=== PATIENT | male | born 1935 | race Caucasian/White ===

== ENCOUNTER 2019-06-19 20:36 | Emergency (ER) | payer MEDICARE ==
[~2019-06-19] VITALS: Ht 182.9 cm; Wt 73.0 kg
[2019-06-19] MEDS ORDERED: ASPIRIN 325 MG TABLET PO ONE (20:45)
--- NOTE | 2019-06-19 21:01 | PHYS DOC ---
Adult General Chief Complaint Chief Complaint: SHORTNESS OF BREATH HPI HPI Patient is a 83 year old male who was brought here urgently by EMS due to chest pressure and shortness of air while he was eating dinner. Patient is scheduled for some surgery in 5 days at [facility] so he was told not to take his aspirin. and his coumadin since Wednesday. Patient has history of CAD, CABG and COPD. He still smokes. He is not on oxygen at home. He denied any cough or fever. He said he was doing fine all day. EMS said when they got to him, he was in respiratory distress. He was pale, breathing heavily, his oxygen saturation was in the 80%. They put him on CPAP. He was given two duoneb treatment on route. Upon arrival to the ER, patient felt much better, no more chest pressure. He was still having shortness of air but not as bad. Review of Systems Review of Systems Constitutional: Denies fever or chills [] Eyes: Denies change in visual acuity, redness, or eye pain [] HENT: Denies nasal congestion or sore throat [] Respiratory: Denies cough , Positive for shortness of breath [] Cardiovascular: No additional information not addressed in HPI [] GI: Denies abdominal pain, nausea, vomiting, bloody stools or diarrhea [] : Denies dysuria or hematuria [] Musculoskeletal: Denies back pain or joint pain [] Integument: Denies rash or skin lesions [] Neurologic: Denies headache, focal weakness or sensory changes [] Endocrine: Denies polyuria or polydipsia [] All other systems were reviewed and found to be within normal limits, except as documented in this note. Current Medications Current Medications Current Medications Medications (Trade) Dose Ordered Sig/[facility] Start Time Stop Time Status Last Admin Dose Admin Aspirin (Lyndsey Aspirin) 325 mg 1X ONCE 06/19/19 20:45 06/19/19 20:51 DC 06/19/19 20:45 325 MG Allergies Allergies Allergies Coded Allergies Type Severity Reaction Last Updated Verified No Known Drug Allergies 06/19/19 No Physical Exam Physical Exam Constitutional: Well developed, well nourished, mild acute distress, non-toxic appearance. [] HENT: Normocephalic, atraumatic, bilateral external ears normal, oropharynx moist, no oral exudates, nose normal. [] Eyes: PERRLA, EOMI, conjunctiva normal, no discharge. [] Neck: Normal range of motion, no tenderness, supple, no stridor. [] Cardiovascular:Heart rate regular rhythm, no murmur [] Lungs & Thorax: Bilateral breath sounds clear to auscultation . Tachypnia with accessory muscle involved. Abdomen: Bowel sounds normal, soft, no tenderness, no masses, no pulsatile masses. [] Skin: Warm, dry, no erythema, no rash. [] Back: No tenderness, no CVA tenderness. [] Extremities: No tenderness, no cyanosis, no clubbing, ROM intact, no edema. [] Neurologic: Alert and oriented X 3, normal motor function, normal sensory function, no focal deficits noted. [] Psychologic: Affect normal, judgement normal, mood normal. [] Current Patient Data Lab Results Current Medications Medications (Trade) Dose Ordered Sig/Shiraz Route PRN Reason Start Time Stop Time Status Last Admin Dose Admin Aspirin (Lyndsey Aspirin) 325 mg 1X ONCE PO 06/19/19 20:45 06/19/19 20:51 DC 06/19/19 20:45 EKG EKG EKG WAS DONE AND READ BY THIS PHYSICIAN AT 0847, RATE OF 113 BPM, RBBB, ST SEGMENT ELEVATION IN II, III, AVF. Radiology/Procedures Radiology/Procedures CHEST XRAY WAS READ BY THIS PHYSICIAN BILATERAL SMALL PLEURAL EFFUSION. MILD PULMONARY EDEMA. NO INFILTATION, NO PNEUMOTHORAX[] Course & Med Decision Making Course & Med Decision Making Pertinent Labs and Imaging studies reviewed. (See chart for details) Patient's EKG is consistent with inferior PA, no old Ekg TO COMPARE. PATIENT WA NTED TO GO TO WHERE HIS HEART DOCTORS ARE. patient was put on BIPAP. He was doing much better. He denied any chest pain a t this time. Dr. Gipson, DIRECTOR OF CAMPUS RECREATION FIELD ADMINISTRATOR AT , was consulted on phone, agreed to accept patient. Dragon Disclaimer Dragon Disclaimer This electronic medical record was generated, in whole or in part, using a voice recognition dictation system. Departure Departure: Impression: Primary Impression: STEMI (ST elevation myocardial infarction) Disposition: 02 XFER SHT-TRM HOSP ([facility]) Condition: STABLE Referrals: KAYLEE HILARIO (PCP) JEFFREY MACHADO DO Jun 19, 2019 21:01
[2019-06-19 21:11] LABS: BASO # 0.1 x10^3/uL (0.0-0.2); BASO % 1 % (0-3); EOS # 0.1 x10^3/uL (0.0-0.7); EOS % 2 % (0-3); HEMATOCRIT 35.6 % (39.0-53.0); HEMOGLOBIN 11.1 g/dL (13.0-17.5); LYMPH # 1.4 x10^3/uL (1.0-4.8); LYMPH % 26 % (24-48); MEAN CORPUSCULAR HEMOGLOBIN 28 pg (25-35); MEAN CORPUSCULAR HGB CONC 31 g/dL (31-37); MEAN CORPUSCULAR VOLUME 89 fL (79-100); MONO # 0.5 x10^3/uL (0.0-1.1); MONO % 10 % (0-9); NEUT # 3.3 x10^3uL (1.8-7.7); NEUT % 60 % (31-73); PLATELET COUNT 319 x10^3/uL (140-400); RED BLOOD COUNT 3.99 x10^6/uL (4.30-5.70); RED CELL DISTRIBUTION WIDTH 25.1 % (11.5-14.5); WHITE BLOOD COUNT 5.5 x10^3/uL (4.0-11.0)
[2019-06-19 21:14] LABS: CALCIUM 8.7 mg/dL (8.5-10.1); CREATININE 1.3 mg/dL (0.7-1.3); GFR 52.6; POTASSIUM 4.7 mmol/L (3.5-5.1)
[2019-06-19] MEDS: NITROGLYCERIN SUBLINGUAL 0.4 MG BOTTLE OF 25. SL PRN ×2 (21:14→21:21)
[2019-06-19 21:21] VITALS: BP 138/83
[2019-06-19 21:27] LABS: ALBUMIN/GLOBULIN RATIO 0.7 (1.0-1.7); MAGNESIUM 2.2 mg/dL (1.8-2.4); TOTAL BILIRUBIN 0.3 mg/dL (0.2-1.0); TOTAL PROTEIN 7.6 g/dL (6.4-8.2)
[2019-06-19] MEDS ORDERED: HEPARIN for IV BOLUS 10,000 UNIT/10 ML VIAL. IV ONE (21:30)
[2019-06-19 21:40] LABS: BGAS PH 7.38 (7.35-7.46)
[2019-06-19 21:59] LABS: ANISOCYTOSIS MOD; OVALOCYTES OCC; PLT ESTIMATE ADEQUATE (ADEQUATE)
[2019-06-19 22:00] LABS: SCHISTOCYTES OCC
--- NOTE | 2019-06-19 22:49 | EKG ---
[address] [address] Test Date: 2019-06-19 Test Time: 20:46:35 Pat Name: FRANKO SEN Department: Room: Gender: M Knock Out Hand: : 1935 Requested By: JEFFREY MACHADO Order Number: [id number] Reading MD: Measurements Intervals [place] Rate: 113 P: -81 [place]: 124 QRS: -90 QRSD: 150 T: 82 QT: 352 QTc: 482 Interpretive Statements SUPRAVENTRICULAR RHYTHM ABNORMAL LEFT AXIS DEVIATION LOW LIMB LEAD VOLTAGE RIGHT BUNDLE BRANCH BLOCK RVH WITH REPOLARIZATION ABNORMALITY QRS(T) CONTOUR ABNORMALITY CONSISTENT WITH LATERAL INFARCT AGE UNDETERMINED CONSISTENT WITH INFERIOR INFARCT POSSIBLY RECENT ABNORMAL ECG RI6.01 No previous ECG available for comparison
--- NOTE | 2019-06-19 22:59 | RAD ---
Exam: Chest one view INDICATION: Short of air TECHNIQUE: Frontal view of the chest Comparisons: None FINDINGS: Sternotomy wires are noted. The cardiomediastinal silhouette and pulmonary vessels are within normal limits. Small bilateral pleural effusions. Strandy opacities at the lung bases bilaterally. IMPRESSION: Small bilateral pleural effusions with adjacent airspace disease, may represent atelectasis versus developing infectious process Electronically signed by: Darrel Franco MD (06/19/2019 10:55 PM) [id number]
== END 2019-06-19 21:29 | disposition short-term general hospital (02) ==
LOC: ER 20:36
DX: I21.3 ST elevation (STEMI) myocardial infarction of unspecified site (principal); I25.810 Atherosclerosis of coronary artery bypass graft(s) without angina pectoris; J44.9 Chronic obstructive pulmonary disease, unspecified
CPT/HCPCS: 36415; 36600; 71045; 80053; 82803; 83605; 83735; 83880; 84484; 85025; 85610; 85730; 87040; 93005; 94660; 96374; 99285; J1644

== ENCOUNTER 2019-07-07 20:00 | Inpatient (IN) | payer MEDICARE ==
[~2019-07-07] VITALS: Ht 177.8 cm; Wt 70.4 kg
[2019-07-07] MEDS ORDERED: IPRATRPIUM/ALBUTEROL 0.5/2.5MG 3 ML NEBU. ONE (20:10)
[2019-07-07] MEDS ORDERED: methylPREDNISolone SOD SUCC PF 125 MG/2 ML VIAL. IV ONE (20:30)
[2019-07-07] MEDS ORDERED: IPRATRPIUM/ALBUTEROL 0.5/2.5MG 3 ML NEBU. NEB ONE (20:30)
[2019-07-07 20:40] LABS: BASO # 0.1 x10^3/uL (0.0-0.2); BASO % 1 % (0-3); EOS # 0.2 x10^3/uL (0.0-0.7); EOS % 3 % (0-3); HEMATOCRIT 32.6 % (39.0-53.0); HEMOGLOBIN 10.3 g/dL (13.0-17.5); LYMPH # 1.6 x10^3/uL (1.0-4.8); LYMPH % 24 % (24-48); MEAN CORPUSCULAR HEMOGLOBIN 30 pg (25-35); MEAN CORPUSCULAR HGB CONC 32 g/dL (31-37); MEAN CORPUSCULAR VOLUME 95 fL (79-100); MONO # 0.5 x10^3/uL (0.0-1.1); MONO % 8 % (0-9); NEUT # 4.2 x10^3uL (1.8-7.7); NEUT % 64 % (31-73); PLATELET COUNT 261 x10^3/uL (140-400); RED BLOOD COUNT 3.44 x10^6/uL (4.30-5.70); RED CELL DISTRIBUTION WIDTH 24.1 % (11.5-14.5); WHITE BLOOD COUNT 6.6 x10^3/uL (4.0-11.0)
--- NOTE | 2019-07-07 20:48 | PHYS DOC ---
Past History Past Medical History: COPD, Heart Disease, Hypertension, Other Additional Past Medical Histor: Cardiac. Past Surgical History: Coronary Bypass Surgery Alcohol Use: None Adult General Chief Complaint Chief Complaint: SHORTNESS OF BREATH HPI HPI 83-year-old male past medical history of COPD on continuous 2 L nasal cannula presents with a chief complaint of shortness of breath. Patient states shortness of breath has been ongoing for 2 days progressively becoming worse. Patient has a cough without sputum production. Patients shortness of breath is worse with exertion. Patient denies any chest pain fevers or chills. Patient with recent VA (06/19/19) with stent placement. At the time of my exam patient was tachypneic and tachycardic with diffuse wheezing. Duoneb treatment was started prior to my exam. Review of Systems Review of Systems Constitutional: Denies fever or chills [] Eyes: Denies change in visual acuity, redness, or eye pain [] HENT: Denies nasal congestion or sore throat [] Respiratory: Positive cough-positive shortness of breath Cardiovascular: No additional information not addressed in HPI [no chest pain] GI: Denies abdominal pain, nausea, vomiting, bloody stools or diarrhea [] : Denies dysuria or hematuria [] Musculoskeletal: Denies back pain or joint pain [] Integument: Denies rash or skin lesions [] Neurologic: Denies headache, focal weakness or sensory changes [] Endocrine: Denies polyuria or polydipsia [] All other systems were reviewed and found to be within normal limits, except as documented in this note. Current Medications Current Medications Current Medications Medications (Trade) Dose Ordered Sig/Shiraz Start Time Stop Time Status Last Admin Dose Admin Albuterol/ Ipratropium (Duoneb) 3 ml 1X ONCE 07/07/19 20:30 07/07/19 20:33 DC 07/07/19 20:11 3 ML Methylprednisolone Sodium Succinate (SOLU-Medrol 125MG VIAL) 125 mg 1X ONCE 07/07/19 20:30 07/07/19 20:33 DC 07/07/19 20:37 125 MG Allergies Allergies Allergies Coded Allergies Type Severity Reaction Last Updated Verified No Known Drug Allergies 06/19/19 No Physical Exam Physical Exam Constitutional: Well developed, well nourished, no acute distress, non-toxic appearance. [] HENT: Normocephalic, atraumatic, bilateral external ears normal, oropharynx mois t, no oral exudates, nose normal. [] Eyes: PERRLA, EOMI, conjunctiva normal, no discharge. [] Neck: Normal range of motion, no tenderness, supple, no stridor. [] Cardiovascular:tachycardia Lungs & Thorax: wheezing Abdomen: Bowel sounds normal, soft, no tenderness, no masses, no pulsatile masses. [] Skin: Warm, dry, no erythema, no rash. [] Back: No tenderness, no CVA tenderness. [] Extremities: No tenderness, no cyanosis, no clubbing, ROM intact, no edema. [] Neurologic: Alert and oriented X 3, normal motor function, normal sensory function, no focal deficits noted. [] Psychologic: Affect normal, judgement normal, mood normal. [] Current Patient Data Lab Results Laboratory Tests Test 07/07/19 20:20 White Blood Count 6.6 x10^3/uL (4.0-11.0) Red Blood Count 3.44 x10^6/uL (4.30-5.70) L Hemoglobin 10.3 g/dL (13.0-17.5) L Hematocrit 32.6 % (39.0-53.0) L Mean Corpuscular Volume 95 fL (79-100) Mean Corpuscular Hemoglobin 30 pg (25-35) Mean Corpuscular Hemoglobin Concent 32 g/dL (31-37) Red Cell Distribution Width 24.1 % (11.5-14.5) H Platelet Count 261 x10^3/uL (140-400) Neutrophils (%) (Auto) 64 % (31-73) Lymphocytes (%) (Auto) 24 % (24-48) Monocytes (%) (Auto) 8 % (0-9) Eosinophils (%) (Auto) 3 % (0-3) Basophils (%) (Auto) 1 % (0-3) Neutrophils # (Auto) 4.2 x10^3uL (1.8-7.7) Lymphocytes # (Auto) 1.6 x10^3/uL (1.0-4.8) Monocytes # (Auto) 0.5 x10^3/uL (0.0-1.1) Eosinophils # (Auto) 0.2 x10^3/uL (0.0-0.7) Basophils # (Auto) 0.1 x10^3/uL (0.0-0.2) Platelet Estimate Pending EKG EKG 2014 Sinus tachycardia right bundle-branch block no ST elevation no ST depression no acute VA[] Radiology/Procedures Radiology/Procedures [] Impressions: 1. Bilateral airspace disease, mildly increased from prior study, likely interstitial edema. 2. Small pleural effusions. Course & Med Decision Making Course & Med Decision Making Pertinent Labs and Imaging studies reviewed. (See chart for details) []Patient was evaluated for chief complaint. Workup consisted of laboratory analysis radiologic imaging and EKG. Results reviewed and discussed with patient. Patient noted to have a troponin of 0.110-- Chest Xray -- interstitial edema ABG - pH 7.4 and CO2 40 Patient treated with Levaquin, Lasix, Solumedrol, and Duoneb. Re-evaluation @ 2100hrs-- Patient 100% on 2L [place] Disclaimer Dragon Disclaimer This electronic medical record was generated, in whole or in part, using a voice recognition dictation system. Departure Departure: Impression: Primary Impression: COPD exacerbation Disposition: ADMITTED INPATIENT Condition: STABLE Referrals: KAYLEE HILARIO (PCP) FRANKO OCONNELL DO Jul 07, 2019 20:48
[2019-07-07 20:50] LABS: CREATININE 1.3 mg/dL (0.7-1.3); GFR 52.6; POTASSIUM 4.5 mmol/L (3.5-5.1)
[2019-07-07 20:56] LABS: ALBUMIN 3.2 g/dL (3.4-5.0); ALBUMIN/GLOBULIN RATIO 0.8 (1.0-1.7); TOTAL BILIRUBIN 0.2 mg/dL (0.2-1.0); TOTAL PROTEIN 7.4 g/dL (6.4-8.2)
--- NOTE | 2019-07-07 21:20 | RAD ---
Single view chest dated 07/07/2019. Comparison made 8 06/19/2019. Clinical data indication: Cough and shortness of breath. FINDINGS: Single upright portable exam performed. Heart and mediastinal contours are stable. Patient is status post median sternotomy. Perihilar and bibasilar airspace disease with blunting of the costophrenic sulci. No pneumothorax. Prominent interstitial markings bilaterally, somewhat increased from prior study. IMPRESSION: 1. Bilateral airspace disease, mildly increased from prior study, likely interstitial edema. 2. Small pleural effusions. Electronically signed by: Chin Ham MD (07/07/2019 9:17 PM) [id number]
[2019-07-07 21:30] LABS: ANISOCYTOSIS MOD; HYPOCHROMIA SLIGHT; PLT ESTIMATE ADEQUATE (ADEQUATE); POLYCHROMASIA SLIGHT
[2019-07-07 21:31] LABS: HELMET CELLS OCC; OVALOCYTES OCC
[2019-07-07 22:08] LABS: BGAS PH 7.41 (7.35-7.46)
[2019-07-08] MEDS ORDERED: ALBUTEROL SULFATE 2.5 MG/3 ML NEBU. NEB PRN
--- NOTE | 2019-07-08 00:48 | NUR ---
The patient, FRANKO SEN, 83 y/o, M admitted by REGGIE AMANDA MD, was given written information regarding hospital policies, unit procedures and contact persons. Valuables were checked and logged. Call light in place. Will continue to monitor.
--- NOTE | 2019-07-08 00:53 | EKG ---
[address] [address] Test Date: 2019-07-07 Test Time: 20:15:32 Pat Name: FRANKO SEN Department: Room: Gender: M Chief Compliance Officer: : 1935 Requested By: FRANKO OCONNELL Order Number: [id number] Reading MD: Measurements Intervals [place] Rate: 102 P: -75 [place]: 134 QRS: -99 QRSD: 154 T: 56 QT: 378 QTc: 497 Interpretive Statements SINUS TACHYCARDIA ABNORMAL RIGHT SUPERIOR AXIS DEVIATION LOW LIMB LEAD VOLTAGE RIGHT BUNDLE BRANCH BLOCK RVH WITH REPOLARIZATION ABNORMALITY QRS(T) CONTOUR ABNORMALITY CONSISTENT WITH ANTEROLATERAL INFARCT PROBABLY OLD CONSISTENT WITH INFERIOR INFARCT PROBABLY OLD ABNORMAL ECG RI6.01 No previous ECG available for comparison
[2019-07-08 01:09] VITALS: BP 157/93
[2019-07-08] MEDS ORDERED: ASPI81TA50 PO (05:21)
[2019-07-08] MEDS ORDERED: CARB400T PO (05:24)
[2019-07-08] MEDS ORDERED: GABA-586 PO (05:24)
[2019-07-08] MEDS ORDERED: METO100T7 PO (05:24)
[2019-07-08] MEDS ORDERED: CRESTOR20 MG PO ×2 (05:26→06:40)
[2019-07-08] MEDS ORDERED: WARF7.5T48 PO (05:37)
[2019-07-08] MEDS ORDERED: WARF-78 PO (05:37)
[2019-07-08] MEDS ORDERED: IPRATRPIUM/ALBUTEROL 0.5/2.5MG 3 ML NEBU. ONE (05:40)
[2019-07-08] MEDS: IPRATRPIUM/ALBUTEROL 0.5/2.5MG 3 ML NEBU. NEB SCH ×4 (05:42→20:15)
[2019-07-08 05:45] VITALS: BP 146/91
--- NOTE | 2019-07-08 05:45 | NUR ---
Routine cardiac consult called at this time.
[2019-07-08] MEDS: methylPREDNISolone SOD SUCC PF 40 MG/ML VIAL. IV SCH ×3 (06:09→20:54)
[2019-07-08] MEDS ORDERED: FURO-68 PO (06:40)
[2019-07-08] MEDS ORDERED: ALBU1.25 NEB (06:40)
[2019-07-08] MEDS ORDERED: LISI-338 PO (06:40)
[2019-07-08] MEDS ORDERED: METO25TA4 PO (06:40)
[2019-07-08] MEDS ORDERED: CLOP75TA57 PO (07:07)
[2019-07-08 11:15] VITALS: BP 145/88
[2019-07-08] MEDS ORDERED: FUROSEMIDE 40 MG TABLET PO PRN (11:45)
[2019-07-08] MEDS ORDERED: NON FORMULARY ITEM (Albuterol Sulfate (Albuterol Sulfate Neb Soln) 1.25 MG) NEB SCH (11:45)
[2019-07-08] MEDS ORDERED: FUROSEMIDE 40 MG/4 ML VIAL IVP ONE (12:15)
[2019-07-08] MEDS: LISINOPRIL 5 MG TABLET. PO SCH (12:34)
[2019-07-08] MEDS: ASPIRIN ENTERIC COATED 81 MG TABLET.DR. PO SCH (12:35)
[2019-07-08] MEDS: CLOPIDOGREL BISULFATE 75 MG TABLET PO SCH (12:35)
--- NOTE | 2019-07-08 12:48 | HP ---
ADMIT DATE: HISTORY OF PRESENT ILLNESS: The patient is an 83-year-old male patient who presented to the Emergency Room of [facility] complaining of shortness of breath. He stated that shortness has been ongoing for the last 2 days, progressively getting worse and has also cough, which is mostly dry. His shortness of breath is worse with exertion. He denied any chest pain, fever, chills or rigors. He apparently was seen recently in the Emergency Room of this hospital, specifically on 06/19/[address] segment elevation myocardial infarction and was transferred to [facility] where he underwent PCI with stent deployment x 2. PAST MEDICAL HISTORY: Significant for hypertension; hyperlipidemia; coronary artery disease, status post coronary artery bypass graft x 4 about 10 years ago and 2 weeks ago underwent PCI with stent deployment. He is known to have chronic obstructive pulmonary disease, on oxygen that started at the end of April of this year. He is known to have osteoarthritis, benign prostatic hypertrophy as well as trigeminal neuralgia for which he was treated with radiofrequency ablation x 2. PAST SURGICAL HISTORY: Significant for coronary artery bypass graft surgery x 4 ten years ago. He has PCI with stent deployment about more than 2 weeks ago, has abdominal aortic aneurysm repair, radiofrequency ablation of his right trigeminal neuralgia, esophagogastroduodenoscopy. ALLERGIES: He has no known drug allergies. MEDICATIONS: He is currently on following medications: He is on albuterol sulfate 1.25 mg in 3 mL by nebulizer every 4 hours. He is on Coumadin 5 mg every Wednesday, Coumadin 7.5 mg daily, Plavix 75 mg once a day, Crestor 20 mg at bedtime, metoprolol tartrate 25 mg twice a day, lisinopril 5 mg daily. He is on aspirin 81 mg once a day, carbamazepine extended release 400 mg twice a day, carbamazepine 300 mg twice a day. He is on furosemide 40 mg daily. FAMILY HISTORY: He has one sister older at the age of 86 and seemingly healthy. His father at the age of 79 because of abdominal aortic aneurysm rupture. His mother at the age of 94 because of old age according to him. SOCIAL HISTORY: He is for the second time. He has 3 sons and 1 daughter who at the age of 47. He quit smoking only 4 days ago. He does not drink alcohol or use any recreational drugs. 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 REVIEW OF SYSTEMS: The patient denied any blurring of vision, cataract, glaucoma or macular degeneration. Denied any earache, tinnitus or sensorineural deafness. Denied any nosebleeds, stuffy nose or postnasal drip. Denied any sore throat, sore tongue, toothache, hoarseness of voice or difficulty swallowing. He denied any nausea, vomiting, diarrhea or constipation. Denied any hematemesis, melena, or hematochezia. Denied any dysuria, frequency or hematuria. Denied any chest pain. Did complain of shortness of breath, more worse on exertion. He has cough, which is mostly dry. He denied any orthopnea or paroxysmal nocturnal dyspnea. Denied any dizziness, lightheadedness, or vertigo. Denied any chills, rigors or fever. PHYSICAL EXAMINATION: GENERAL: On arrival to the Emergency Room, he looked pale. No jaundice, cyanosis or thyromegaly. No jugular venous distention or limb edema. VITAL SIGNS: His heart rate was 110, blood pressure was 142/84, temperature was 97.7, respiratory rate was 28 and oxygen saturation was 95%. HEAD, EYES, EARS, NOSE AND THROAT: Showed normocephalic, atraumatic. NECK: Supple. HEART: Showed normal first and second heart sounds. No gallop, rub or murmur. CHEST: Clear to auscultation. No crepitation or rhonchi. ABDOMEN: Distended, soft, nontender. NEUROLOGIC: He was awake, alert, responding appropriately. All cranial nerves intact. EXTREMITIES: He moves extremities without difficulty, ambulates without assistance or assistive devices. LABORATORY DATA: Showed a white cell count of 6600, hemoglobin 10, hematocrit 33, MCV 95, and platelet count 261,000 with normal manual differential. His chemistry showed a serum sodium 134, potassium 4.5, chloride 99, bicarbonate 31, anion gap of 4, BUN 15, creatinine 1.3, estimated GFR was 52 mL per minute. His glucose 153, calcium was 9. AST and ALT were normal. Alkaline phosphatase slightly elevated. Total protein was 7.4, albumin was 3.2. His blood gases showed a pH of 7.41, pCO2 of 41, pO2 of 77, bicarbonate was 26 and oxygen saturation was 95% on FiO2 of 28%. His prothrombin time and INR is 18.7 and 1.8. His aPTT was 36. His chest x-ray showed that the patient's heart and mediastinal contours are stable. The patient is status post median sternotomy, perihilar and bibasilar airspace disease with blunting of the costophrenic sulci. No pneumothorax. Prominent interstitial markings bilaterally, somewhat increased from prior study with the impression that the patient's bilateral airspace disease might be increased from prior study, likely interstitial edema, a small bilateral pleural effusion. ASSESSMENT AND PLAN: Basically, the patient was admitted with chronic obstructive pulmonary disease exacerbation, started him on IV antibiotic, steroids as well as bronchodilator. We will continue with all his medication and we will monitor him closely and decide on further management accordingly. REGGIE AMANDA MD DR: PAUL/dimas JOB#: [id number] / [id number]
--- NOTE | 2019-07-08 15:12 | PN ---
DATE: 07/08/2019 SUBJECTIVE: The patient is resting, slightly propped up in bed, in no apparent respiratory distress. He is awake, alert. Again, he denied any chest pain. Continued to have some shortness of breath, cough that is mostly dry. Denied any hemoptysis. PHYSICAL EXAMIANTION: GENERAL: When I saw him this morning, he looked well and was clearly in no apparent respiratory distress. He was pale. No jaundice, cyanosis or thyromegaly. No jugular venous distention. No limb edema. VITAL SIGNS: His heart rate was 91, blood pressure was 146/91, temperature was 97.9, respiratory rate was 22 and oxygen saturation was 96% on 2.5 liters of oxygen. HEAD, EYES, EARS, NOSE AND THROAT: Showed normocephalic, atraumatic. NECK: Supple. CARDIAC: Normal first and second heart sounds. No gallop or murmur. CHEST: Shows central trachea, equally reduced expansion, reduced air entry, vesicular sounds with bilateral scattered rhonchi. I could not appreciate any crepitation. ABDOMEN: Scaphoid, soft, nontender. NEUROLOGIC: He is awake, alert, responding appropriately. All cranial nerves are intact. He moves extremities without difficulty. LABORATORY DATA: His lab work this morning showed that he had actually 3 sets of cardiac enzymes. First troponin was 0.117, second was 0.090, third one was 0.079. His BNP was high at 7672. ASSESSMENT AND PLAN: My plan is to order IV Lasix 40 mg once today and we can continue with his oral diuretics tomorrow. I have already consulted the instrument panel assembler. REGGIE AMANDA MD DR: PAUL/dimas JOB#: [id number] / [id number]
[2019-07-08 15:32] VITALS: BP 129/76
[2019-07-08 19:30] VITALS: BP 106/66
[2019-07-08] MEDS: ATORVASTATIN CALCIUM 20 MG TABLET PO SCH (20:53)
[2019-07-08] MEDS: GABAPENTIN 300 MG CAPSULE. PO SCH (20:54)
[2019-07-08] MEDS: METOPROLOL TART IMMED RELEASE 25 MG TABLET PO SCH (20:54)
[2019-07-08] MEDS: LACTOBACILLUS RHAMNOSUS GG 1 CAPSULE. PO SCH (20:54)
[2019-07-09 00:02] VITALS: BP 111/71
[2019-07-09] MEDS: IPRATRPIUM/ALBUTEROL 0.5/2.5MG 3 ML NEBU. NEB SCH ×4 (04:56→19:58)
[2019-07-09] MEDS: methylPREDNISolone SOD SUCC PF 40 MG/ML VIAL. IV SCH ×3 (05:37→21:10)
[2019-07-09 06:13] VITALS: BP 118/72
[2019-07-09 07:26] LABS: CALCIUM 8.4 mg/dL (8.5-10.1); CREATININE 1.2 mg/dL (0.7-1.3); GFR 57.7; POTASSIUM 4.4 mmol/L (3.5-5.1)
[2019-07-09] MEDS ORDERED: VANCOMYCIN 1.75 GM in IV NORMAL SALINE 500ML 500 ML IV ONE (08:00)
[2019-07-09] MEDS: VANCOMYCIN PER PHARMACY MC PRN ×2 (08:22→08:24)
--- NOTE | 2019-07-09 08:22 | NUR ---
Pharmacy Vancomycin Dosing Note S:Consulted to monitor and dose vancomycin started 07/09/19. O:FRANKO SEN is a 83 year old M with Pneumonia, . Height: 5 feet, 10 inches Weight: 70.3 kg [employer] [employer] Body Weight: 73.00 Adjusted Body Weight: 71.92 Dosing Weight: Actual Other Antibiotics: LEVAQUIN LABS: Last BUN: Last Creatinine: 1.2 Creatinine Clearance: 45.6 Last WBC: 6.6 Last Procalcitonin: Tmax (past 24 hours): Microbiology: I/O: Drug Levels: Last level: on at Last dose given at Vancomycin Dosing: Loading Dose: 1750 mg x1 Dosing Weight: Actual Target Trough: 15-20 A: Based on: physician request for dosing, unable to take Zyvox due to drug interaction with carbamazapine P: 1. Begin Vancomycin 1750mg loading dose, then 1000 mg IV q24h 2. Follow up Trough level on 07/11/19 at 0830 3. Pharmacy will continue to monitor, follow and adjust therapy as needed. KARINA BROWN, 07/09/19 0822
[2019-07-09] MEDS: LACTOBACILLUS RHAMNOSUS GG 1 CAPSULE. PO SCH ×2 (08:53→21:10)
[2019-07-09] MEDS: METOPROLOL TART IMMED RELEASE 25 MG TABLET PO SCH ×2 (08:53→21:10)
[2019-07-09] MEDS: CLOPIDOGREL BISULFATE 75 MG TABLET PO SCH (08:53)
[2019-07-09] MEDS: ASPIRIN ENTERIC COATED 81 MG TABLET.DR. PO SCH (08:53)
[2019-07-09] MEDS: LISINOPRIL 5 MG TABLET. PO SCH (08:54)
[2019-07-09] MEDS: GABAPENTIN 300 MG CAPSULE. PO SCH ×2 (08:54→21:10)
[2019-07-09] MEDS ORDERED: FUROSEMIDE 40 MG TABLET PO SCH (09:00)
--- NOTE | 2019-07-09 09:35 | CONS ---
DATE OF CONSULTATION: 07/09/2019 REASON FOR CONSULTATION: Heart failure. HISTORY OF PRESENT ILLNESS: The patient is an 83-year-old man who was admitted to the hospital in the setting of dyspnea. He was previously admitted in early June and was transferred to [facility] where he underwent complex PCI of his tunica-biloxi LAD and radial graft to his RCA. He denied any chest pain after discharge from [facility] and I reviewed the records. But unfortunately over the last few days, he has had worsening dyspnea. He was admitted to the hospital here at [place] over the last 24-48 hours, has been diuresed and feels much better and back to baseline. Unfortunately, his blood cultures drawn in the ER were positive for 2 hours two sets for gram-positive cocci in clusters. He currently denies any other acute issues. Denies any fevers or chills at home. Denies any weight gain. He has not changed his diet in any manner. He thought that Lasix was to be used as needed, but unfortunately had some insidious increase in fluid, which prompted the admission. PAST MEDICAL HISTORY: 1. Coronary artery disease, status post PCI to the tunica-biloxi LAD due to an atretic CABRLA and PCI to the proximal left circumflex with overlapping Resolute [place] stents. The patient's radial graft to the RCA was not treated due to lack of any viability in the inferior portion of the RCA. 2. Hypertension. 3. Dyslipidemia. 4. Peripheral vascular disease, status post aortoiliac stenting for aneurysm in 2006. 5. Tobacco use. 6. Severe chronic obstructive pulmonary disease, on home O2 at 2 liters. 7. Prior history of bypass. SOCIAL HISTORY: No alcohol or illicit drug use. FAMILY HISTORY: Noncontributory. REVIEW OF SYSTEMS: Negative for 10 out of 14 systems reviewed, unless otherwise mentioned above in HPI. CURRENT CARDIOVASCULAR MEDICATIONS: 1. Warfarin. 2. Lasix 40 mg daily. 3. Atorvastatin 80 mg daily. 4. Metoprolol 25 mg p.o. b.i.d. 5. Lisinopril 5 mg daily. 6. Plavix 75 mg daily. 7. Aspirin 81 mg daily. 8. He is also on some Solu-Medrol. PHYSICAL EXAMINATION: VITAL SIGNS: Afebrile, 89, 21, 132/77, 97% on 2 liters. GENERAL: He is alert and oriented, in no acute distress. HEAD AND NECK: Unremarkable. CARDIAC: Deferred. PULMONARY: Deferred. EXTREMITIES: No significant lower extremity edema. DIAGNOSTIC STUDIES: Reviewed and INR is 1.9 with a normal creatinine. BNP is elevated at 7600. Cardiac enzymes are minimally elevated likely secondary to his acute systolic heart failure. Echocardiogram done at [facility] revealed ejection fraction of 40%. Chest x-ray here reveals mild pulmonary edema. IMPRESSION: 1. Acute on chronic systolic and diastolic heart failure. 2. Known coronary artery disease, status post recent PCI. 3. Chronic obstructive pulmonary disease. RECOMMENDATIONS: Agree with current cardiovascular medication regimen. Continue with treatment of his COPD exacerbation and positive blood cultures. No further cardiac testing necessary at this time. Thank you for this consultation. JOSE RICHEY MD DR: TAMMY/dimas JOB#: [id number] / [id number]
--- NOTE | 2019-07-09 12:35 | PN ---
DATE: 07/09/2019 SUBJECTIVE: The patient is resting, slightly propped up in bed, in no apparent distress. He actually continued to have cough with clear sputum. Has had no fever, chills or rigors. No chest pain. He apparently is feeling much better. We will continue with bronchodilator, steroids, all his medication. He apparently has 3 sets of cardiac enzymes that ruled out acute myocardial infarction. He was seen by the Cardiology team and he did not recommend any further cardiac testing. However, his blood culture has shown tiny gram-positive cocci in clusters in 2 out of 2 bottles. We did start him on vancomycin. We will continue current plan of management. PLAN: Continue with his Coumadin and I will repeat all his labs tomorrow. Once we have the culture and sensitivity, we will switch him to oral medication, he can be discharged home. REGGIE AMANDA MD DR: PAUL/dimas JOB#: [id number] / [id number]
[2019-07-09] MEDS ORDERED: WARFARIN 7.5 MG TABLET. PO SCH (16:00)
[2019-07-09 16:54] VITALS: BP 132/72
[2019-07-09 20:00] VITALS: BP 128/67
[2019-07-09] MEDS: ATORVASTATIN CALCIUM 20 MG TABLET PO SCH (21:10)
[2019-07-09 23:19] VITALS: BP 119/71
[2019-07-10] MEDS: IPRATRPIUM/ALBUTEROL 0.5/2.5MG 3 ML NEBU. NEB SCH ×2 (05:02→09:09)
[2019-07-10] MEDS: methylPREDNISolone SOD SUCC PF 40 MG/ML VIAL. IV SCH (06:00)
[2019-07-10 06:10] VITALS: BP 138/78
[2019-07-10 06:36] LABS: HEMATOCRIT 29.8 % (39.0-53.0); HEMOGLOBIN 9.6 g/dL (13.0-17.5); RED BLOOD COUNT 3.16 x10^6/uL (4.30-5.70); RED CELL DISTRIBUTION WIDTH 24.4 % (11.5-14.5); WHITE BLOOD COUNT 5.5 x10^3/uL (4.0-11.0)
[2019-07-10 06:52] LABS: ALBUMIN 2.9 g/dL (3.4-5.0); ALBUMIN/GLOBULIN RATIO 0.8 (1.0-1.7); CALCIUM 8.9 mg/dL (8.5-10.1); CREATININE 1.2 mg/dL (0.7-1.3); GFR 57.7; POTASSIUM 4.3 mmol/L (3.5-5.1); TOTAL BILIRUBIN 0.2 mg/dL (0.2-1.0); TOTAL PROTEIN 6.7 g/dL (6.4-8.2)
[2019-07-10] MEDS: ASPIRIN ENTERIC COATED 81 MG TABLET.DR. PO SCH (08:55)
[2019-07-10] MEDS: METOPROLOL TART IMMED RELEASE 25 MG TABLET PO SCH (08:55)
[2019-07-10] MEDS: LACTOBACILLUS RHAMNOSUS GG 1 CAPSULE. PO SCH (08:55)
[2019-07-10] MEDS: CLOPIDOGREL BISULFATE 75 MG TABLET PO SCH (08:55)
[2019-07-10] MEDS: LISINOPRIL 5 MG TABLET. PO SCH (08:56)
[2019-07-10] MEDS: GABAPENTIN 300 MG CAPSULE. PO SCH (09:00)
[2019-07-10] MEDS ORDERED: VANCOMYCIN 1 GM in IV NORMAL SALINE 250ML 250 ML IV SCH (09:00)
[2019-07-10 10:30] VITALS: BP 104/58
[2019-07-10] MEDS ORDERED: LEVO500T59 PO (11:57)
--- NOTE | 2019-07-10 12:09 | DS ---
DATE OF DISCHARGE: HOSPITAL COURSE: The patient is an 83-year-old male patient who was admitted with increasing shortness of breath and was basically diagnosed with chronic obstructive pulmonary disease exacerbation, questionable acute bronchitis. He has also acute on chronic diastolic congestive heart failure. He did actually very well. Unfortunately, his blood culture has grown tiny gram-positive cocci in clusters in 2/2 bottles and I spoke with the microbiology lab in [facility] who apparently sent the cultures yesterday to [place], [place]; however, today when I spoke to the lab in the [place], [place], they said they have not received it yet and probably still in swaying according to pathology lab technician at [facility]. The result will probably become available either on Wednesday or and as the patient is doing well, he is afebrile, his white cell count is normal, a decision was made to discharge him home to continue with IV antibiotic as an outpatient. He will be on vancomycin 1 gram IV daily and once we have the actual result of blood culture, we will obviously either continue with that or change to something orally depends on the identification and sensitivity. PHYSICAL EXAMINATION: GENERAL: When I saw him this afternoon, he was resting slightly propped up in bed, in no apparent respiratory distress. He was slightly pale, but no jaundice, cyanosis or thyromegaly. No jugular venous distention. No lower limb edema. VITAL SIGNS: His heart rate was 70, blood pressure was 104/58, temperature was 97.4, respiratory rate was 20, and oxygen saturation was 99% on 2 liters of oxygen. HEAD, EYES, EARS, NOSE AND THROAT: Showed normocephalic, atraumatic. NECK: Supple. HEART: Showed normal first and second heart sounds. No gallop or murmur. CHEST: Clear to auscultation. No crepitation or rhonchi. ABDOMEN: Distended, soft, nontender. No guarding or rigidity. No organomegaly. All hernial orifices intact. Bowel sounds normal. NEUROLOGIC: He was awake, alert, responding appropriately. All cranial nerves are intact. He moves extremities without difficulty. He ambulates without assistance or assistive devices. His intake and output are incompletely recorded. LABORATORY DATA: Showed a white cell count 5500, hemoglobin 9.6, hematocrit 29.8, MCV 94 and a platelet count of 194,000. His serum sodium was 135, potassium 4.3, chloride 100, bicarbonate 28, anion gap of 7, BUN 23, creatinine 1.2, estimated GFR was 58 mL per minute. His glucose was 98, calcium was 8.9. Total bilirubin, AST, ALT, alkaline phosphatase were normal. Total protein was 6.7, albumin was 2.9. His prothrombin time was 19.9, INR 1.9. His blood culture showed growth of tiny gram-positive cocci in clusters in 2/2 bottles, one set was drawn. DISCHARGE MEDICATIONS: He will be discharged home to continue on vancomycin 1 gram IV daily and continue on Coumadin 5 mg Wednesday, Wednesday, Wednesday and Coumadin 7.5 mg on Wednesday, Wednesday, Wednesday. Continue lactobacillus rhamnosus 1 capsule twice a day, atorvastatin 80 mg at bedtime, carbamazepine 400 mg twice a day, metoprolol tartrate 25 mg twice a day, gabapentin 300 mg twice a day, levofloxacin 500 mg IV daily, lisinopril 5 mg once a day, Plavix 75 mg once a day, aspirin 81 mg once a day, albuterol sulfate, ipratropium bromide in 3 mL by nebulizer 4 times a day. He will be in a tapering course of steroids in the form of prednisone 40 mg once a day for 3 days, 30 mg once a day for 3 days, 20 mg once a day for 3 days and 10 mg once a day for 3 days. FINAL DISCHARGE DIAGNOSES: 1. Acute bronchitis. 2. Chronic obstructive pulmonary disease exacerbation. 3. Gram-positive bacteremia with growth of tiny gram-positive cocci. The identification and sensitivity is still pending at the time of this dictation. OTHER MEDICAL PROBLEMS: Include: A. Coronary artery disease, status post PCI with stent deployment to left anterior descending and proximal left circumflex. B. Hypertension. C. Hyperlipidemia. D. Peripheral vascular disease, status post aortoiliac stenting for aneurysm in 2006. E. Tobacco use disorder. F. Severe chronic obstructive pulmonary disease that is oxygen dependent. REGGIE AMANDA MD DR: PAUL/dimas JOB#: [id number] / [id number]
--- NOTE | 2019-07-10 13:28 | NUR ---
Pt discharged home with spouse. Pt left unit via wheelchair. VSS. NAD. Denies pain. PIV left in place for OP infusion beginning tomorrow. Discharge instructions and follow up information discussed with patient. Questions answered. All belongings accounted for. No falls or injury reported.
[2019-07-10] MEDS ORDERED: WARFARIN 5 MG TABLET. PO SCH (16:00)
== END 2019-07-10 13:30 | disposition hospice, home (50) | DRG 190 ==
LOC: ER 20:00 → 1 SOUTH 22:11 → OBSVTOIN 07-08 00:48
PROVIDERS: ADMIT Internal Medicine; ATTEND Internal Medicine
DX: J44.0 Chronic obstructive pulmonary disease with (acute) lower respiratory infection (principal); I50.43 Acute on chronic combined systolic (congestive) and diastolic (congestive) heart failure; R78.81 Bacteremia; I11.0 Hypertensive heart disease with heart failure; J44.1 Chronic obstructive pulmonary disease with (acute) exacerbation; J20.9 Acute bronchitis, unspecified; I25.10 Atherosclerotic heart disease of native coronary artery without angina pectoris; M19.90 Unspecified osteoarthritis, unspecified site; N40.0 Benign prostatic hyperplasia without lower urinary tract symptoms; E78.5 Hyperlipidemia, unspecified; I73.9 Peripheral vascular disease, unspecified; B96.89 Other specified bacterial agents as the cause of diseases classified elsewhere; Z99.81 Dependence on supplemental oxygen; Z95.5 Presence of coronary angioplasty implant and graft; Z95.1 Presence of aortocoronary bypass graft; Z86.79 Personal history of other diseases of the circulatory system; Z72.0 Tobacco use; I25.2 Old myocardial infarction
CPT/HCPCS: 36415; 71045; 80048; 80053; 82803; 83605; 83880; 84484; 85025; 85027; 85610; 85730; 87040; 87205; 93005; 94640; G0378; G0379; J1940; J1956; J2920; J2930; J3370; J7040; J7050

== ENCOUNTER 2019-08-24 20:08 | Emergency (ER) | payer MEDICARE ==
[~2019-08-24] VITALS: Ht 177.8 cm; Wt 70.4 kg
[~2019-08-24 20:08] MED LIST: ALBU1.25 NEB; ASPI81TA50 PO; CARB400T PO; CLOP75TA57 PO; CRESTOR20 MG PO; FURO-68 PO; GABA-586 PO; LEVO500T59 PO; LISI-338 PO; METO100T7 PO; METO25TA4 PO; WARF-78 PO; WARF7.5T48 PO
--- NOTE | 2019-08-24 20:36 | PHYS DOC ---
Past History Past Medical History: A-Fib, Anemia, Anxiety, Arthritis, Arrhythmia, Bronchitis, CAD, COPD, Heart Disease, Hypertension, IA, Other Additional Past Medical Histor: Cardiac. Past Surgical History: Angioplasty, Coronary Bypass Surgery, Other Additional Past Surgical Histo: 2 cardiac stents Smoking: Cigarettes Alcohol Use: None General Adult EDM: Chief Complaint: SHORTNESS OF BREATH HPI: HPI: ".. 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 Patient in severe respiratory distress upon arrival to the emergency department. In route paramedics had given 125 Solu-Medrol and DuoNeb treatment. Patient currently requiring face mask with 100% oxygen to maintain saturations above 90. Patient in a tripod position with intercostal retractions. Patient recently seen in the emergency department on 07/07/19 a COPD exacerbation. Patient p atient prior to that had been seen for acute marked cardial infarction when he was transferred to [facility] where he underwent PCI with stent deployment x2. Patient is normally O2 to dependent at 2 L nasal cannula. Patient has history of diastolic dysfunction and CHF. Patient however has not been taking any Lasix. Patient reports his weights gone from 150 #, pt states his wt. 163 # today. Patient denies any recent travel outside the [place] area. Patient denies any specific recent ill contacts. Patient denies any fevers. Patient does have a significant medical history of hypertension, hyperlipidemia, coronary artery disease status post coronary artery bypass in 2009 and since that time has had stent placements. Patient also has history of osteoarthritis, markedly enlarged prostate, trigeminal neuralgia, aortic aneurysm status post repair, GERD, gastritis, and hypertension. Patient currently on Coumadin for history of episodic dysrhythmias and A. fib. Patient still admits to smoking. Patient states he will accept intubation if he has no improvement with less aggressive treatment. Patient does request to be rodriguez sferred to who does his cardiac care. Pt. normally follow locally with . Review of Systems: Review of Systems: Constitutional: Denies fever or chills Eyes: Denies change in visual acuity HENT: Denies nasal congestion or sore throat Respiratory: Complains of cough and severe shortness of breath Cardiovascular: Complains of chest discomfort. GI: Denies abdominal pain, nausea, vomiting, bloody stools or diarrhea : Denies dysuria Musculoskeletal: Denies back pain or joint pain Integument: Denies rash Neurologic: Denies headache, focal weakness or sensory changes Endocrine: Denies polyuria or polydipsia Lymphatic: Denies swollen glands Psychiatric: Denies depression or anxiety Heart Score: HEART Score for Chest Pain: HEART Score for Chest Pain Response (Comments) Value History Highly Suspicious [address] Depression 2 Age > 65 2 Risk Factors >3 Risk Factors or Hx CAD 2 Troponin >3 x Normal Limit 2 Total 10 Risk Factors: Risk Factors: DM, Current or recent (<one month) smoker, HTN, HLP, family history of CAD, obesity. Risk Scores: Score 0 - 3: 2.5% MACE over next 6 weeks - Discharge Home Score 4 - 6: 20.3% MACE over next 6 weeks - Admit for Clinical Observation Score 7 - 10: 72.7% MACE over next 6 weeks - Early Invasive Strategies Family History: Family History: Has a sister that is reportedly 86 years old and healthy. Father at age 79 because of abdomen aortic aneurysm rupture. Mother at age 94. Current Medications: Current Meds: See nursing for home meds ( Pt. currently not taking any Lasix) Allergies: Allergies: Allergies Coded Allergies Type Severity Reaction Last Updated Verified No Known Drug Allergies 06/19/19 No Physical Exam: PE: Constitutional: In acute severe respiratory distress, morbid in appearance. [] HENT: Normocephalic, atraumatic, bilateral external ears normal, oropharynx moist, no oral exudates, nose normal. [] Eyes: PERRLA, EOMI, conjunctiva normal, no discharge. [] Neck: Normal range of motion, no tenderness, supple, no stridor. JVD in the sitting position Cardiovascular: Tachycardia heart rate, irregular rhythm, PMI to the left. Monitor shows a supraventricular rhythm with a bundle branch block. Lungs & Thorax: Bilateral breath sounds equal at apex with wheezes throughout and basilar crackles on auscultation [. Patient has a midline scar. Intercostal retractions. Abdomen: Bowel sounds decreased , soft, no tenderness, no masses, no pulsatile masses. Old surgery scars Skin: Warm, diaphoretic, no erythema, stasis changes. Back: No tenderness, no CVA tenderness. [] Extremities: No tenderness, distal cyanosis, no clubbing, ROM intact, no marked edema. Arthritic changes. No cording appreciated Neurologic: Alert and oriented X 3, moves his extremities on request, has distal sensory,, no gross focal deficits noted. [] Psychologic: Affect anxious, judgement normal, mood normal. [] EKG: EKG: EKG shows a sinus rhythm 116 beats. Rhythm appears to be supraventricular but has obvious axis deviation and bundle branch block. Does have a strain pattern. Morphology consistent with possible acute STEMI. Does have findings of RVH repolarization abnormalities. [] Radiology/Procedures: Radiology/Procedures: [][address] [address] IMAGING REPORT Signed PATIENT: FRANKO SEN ACCOUNT: [id number] : 1935 LOCATION: ER AGE: 84 SEX: M EXAM STATUS: REG ER ORD. PHYSICIAN: CAROL RAM MD REASON: Shortness of air, respiratory failure PROCEDURE: PORTABLE CHEST 1V EXAM: AP View of the chest DATE: 08/24/2019 8:37 PM INDICATION: Shortness of air, respiratory failure COMPARISON: 07/07/2019 FINDINGS/ IMPRESSION: The cardiomediastinal silhouette is stable. Bilateral lung base and perihilar airspace opacities are essentially stable. Trace bilateral pleural effusions. No pneumothorax. Electronically signed by: Thomas Blakely MD (08/24/2019 9:19 PM) [facility] DICTATED AND SIGNED BY: THOMAS BLAKELY MD DATE: 08/24/192118 CC: CAROL RAM MD; KAYLEE HILARIO Course & Med Decision Making: Course & Med Decision Making Pertinent Labs and Imaging studies reviewed. (See chart for details) Pt. received Lasix, DuoNeb's, nitroglycerin topically and coverage for pneumonia. Patient had gradual improvement of his acute respiratory failure and was able to titrate down his oxygen 5 L. ( Pt. normally on 2 liters) Critical care 90 min. Pt. accepted at - Dr. Dorsey-asif Willis. Impression: 1. Acute respiratory failure-hypoxia 2. Acute COPD exacerbation 3. Acute diastolic dysfunction CHF-BNP 4765 4. Chest discomfort-elevated troponin of 2.426 5. History of coronary artery disease status post bypass 2009 and recent stents 06/19/2019 6. Anemia hemoglobin 12.3 7. Elevated creatinine 1,4 8. Diabetes glucose 207 9. Elevated AST 48 10. Elevated d-dimer 4.13 11. History of tobacco use 12. Accelerated HTN [] Dragon Disclaimer: Dragon Disclaimer: This electronic medical record was generated, in whole or in part, using a voice recognition dictation system. Departure Departure: Disposition: HOME/RESIDENCE PRIOR TO ADM Condition: STABLE Referrals: KAYLEE HILARIO (PCP) Beni Disclaimer This chart was dictated in whole or in part using Voice Recognition software in a busy, high-work load, and often noisy Emergency Department environment. It may contain unintended and wholly unrecognized errors or omissions. Dragon Disclaimer This chart was dictated in whole or in part using Voice Recognition software in a busy, high-work load, and often noisy Emergency Department environment. It may contain unintended and wholly unrecognized errors or omissions. CAROL RAM MD August 24, 2019 20:36
[2019-08-24] MEDS ORDERED: cefTRIAXone SODIUM 1 GM VIAL ONE (20:50)
[2019-08-24] MEDS ORDERED: IV NORMAL SALINE 50ML 50 ML ONE (20:50)
[2019-08-24 21:04] LABS: BASO # 0.1 x10^3/uL (0.0-0.2); BASO % 1 % (0-3); EOS # 0.2 x10^3/uL (0.0-0.7); EOS % 3 % (0-3); HEMATOCRIT 37.9 % (39.0-53.0); HEMOGLOBIN 12.3 g/dL (13.0-17.5); LYMPH # 2.5 x10^3/uL (1.0-4.8); LYMPH % 31 % (24-48); MEAN CORPUSCULAR HEMOGLOBIN 31 pg (25-35); MEAN CORPUSCULAR HGB CONC 32 g/dL (31-37); MEAN CORPUSCULAR VOLUME 96 fL (79-100); MONO # 0.6 x10^3/uL (0.0-1.1); MONO % 7 % (0-9); NEUT # 4.7 x10^3uL (1.8-7.7); NEUT % 58 % (31-73); PLATELET COUNT 185 x10^3/uL (140-400); RED BLOOD COUNT 3.95 x10^6/uL (4.30-5.70); RED CELL DISTRIBUTION WIDTH 16.6 % (11.5-14.5)
[2019-08-24 21:07] LABS: CREATININE 1.4 mg/dL (0.7-1.3); GFR 48.2; POTASSIUM 4.5 mmol/L (3.5-5.1)
[2019-08-24 21:07] LABS: BGAS PH 7.35 (7.35-7.46)
--- NOTE | 2019-08-24 21:21 | RAD ---
EXAM: AP View of the chest DATE: 08/24/2019 8:37 PM INDICATION: Shortness of air, respiratory failure COMPARISON: 07/07/2019 FINDINGS/ IMPRESSION: The cardiomediastinal silhouette is stable. Bilateral lung base and perihilar airspace opacities are essentially stable. Trace bilateral pleural effusions. No pneumothorax. Electronically signed by: Thomas Schultz MD (08/24/2019 9:19 PM) ROSIE
[2019-08-24 21:22] LABS: ALBUMIN 3.7 g/dL (3.4-5.0); DIRECT BILIRUBIN 0.1 mg/dL (0.0-0.2); MAGNESIUM 2.1 mg/dL (1.8-2.4); TOTAL BILIRUBIN 0.3 mg/dL (0.2-1.0); TOTAL PROTEIN 7.5 g/dL (6.4-8.2)
[2019-08-24 21:30] VITALS: BP 163/110
[2019-08-24] MEDS ORDERED: ACETAMINOPHEN 500 MG TABLET PO ONE (21:30)
[2019-08-24] MEDS ORDERED: AZITHROMYCIN 500 MG in IV NORMAL SALINE 250ML 250 ML IV ONE (21:30)
[2019-08-24] MEDS ORDERED: NITROGLYCERIN OINT 1 GM PACKET. TP ONE (21:30)
[2019-08-24] MEDS ORDERED: IV RINGERS SOLUTION,LACTATED 1,000 ML IV SCH (21:30)
[2019-08-24] MEDS ORDERED: FUROSEMIDE 40 MG/4 ML VIAL IVP ONE (21:30)
[2019-08-24 21:58] LABS: AMPHETAMINE/METHAMPHETAMINE NEG (NEG); BARBITURATES NEG (NEG); BENZODIAZEPINES NEG (NEG); CANNABINOIDS NEG (NEG); COCAINE NEG (NEG); METHADONE NEG (NEG); OPIATES NEG (NEG); PHENCYCLIDINE NEG (NEG)
[2019-08-24 22:02] LABS: BACTERIA,URINE 0 /HPF (0-FEW); BILIRUBIN,URINE NEG (NEG); CLARITY,URINE CLEAR; COLOR,URINE YELLOW; GLUCOSE,URINE NEG (NEG); HYALINE CASTS, URINE OCC /HPF; NITRITE,URINE NEG (NEG); SQUAMOUS EPITHELIAL CELL,UR OCC /LPF; UROBILINOGEN,URINE 0.2 mg/dL (0.2 mg/dL)
[2019-08-24] MEDS ORDERED: IV NORMAL SALINE 250ML 250 ML ONE (23:01)
[2019-08-24] MEDS ORDERED: AZITHROMYCIN 500 MG VIAL. IV ONE (23:01)
--- NOTE | 2019-08-25 23:06 | EKG ---
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
== END 2019-08-24 23:32 | disposition home or self-care (01) ==
LOC: ER 20:08
DX: J96.01 Acute respiratory failure with hypoxia (principal); J44.1 Chronic obstructive pulmonary disease with (acute) exacerbation; R07.89 Other chest pain; I11.0 Hypertensive heart disease with heart failure; I50.31 Acute diastolic (congestive) heart failure; D64.9 Anemia, unspecified; R79.89 Other specified abnormal findings of blood chemistry; F17.210 Nicotine dependence, cigarettes, uncomplicated; R79.1 Abnormal coagulation profile; R94.5 Abnormal results of liver function studies; Z95.5 Presence of coronary angioplasty implant and graft; I25.10 Atherosclerotic heart disease of native coronary artery without angina pectoris; I48.91 Unspecified atrial fibrillation; I25.2 Old myocardial infarction; Z95.1 Presence of aortocoronary bypass graft; K21.9 Gastro-esophageal reflux disease without esophagitis; M19.90 Unspecified osteoarthritis, unspecified site; Z79.01 Long term (current) use of anticoagulants
CPT/HCPCS: 36415; 36600; 71045; 80048; 80076; 80307; 81001; 82550; 82803; 83605; 83690; 83735; 83880; 84443; 84484; 85025; 85379; 85610; 85730; 87040; 93005; 94640; 96365; 96366; 96368; 96375; 99291; 99292; J0456; J0696; J1940; J7050; J7120; 87205

== ENCOUNTER 2019-09-26 18:07 | Emergency (ER) | payer MEDICARE ==
[~2019-09-26] VITALS: Ht 177.8 cm; Wt 70.4 kg
[~2019-09-26 18:07] MED LIST changes: -WARF-78 PO; +WARF5TAB2 PO
[2019-09-26] MEDS ORDERED: IV NORMAL SALINE 1,000ML 1,000 ML IV SCH (18:09)
--- NOTE | 2019-09-26 18:09 | PHYS DOC ---
Past History Past Medical History: A-Fib, Anemia, Anxiety, Arthritis, Arrhythmia, Bronchitis, CAD, COPD, Heart Disease, Hypertension, IA, Other Additional Past Medical Histor: Cardiac. Past Surgical History: Angioplasty, Coronary Bypass Surgery, Other Additional Past Surgical Histo: 2 cardiac stents Smoking: Cigarettes Alcohol Use: None Drug Use: None General Adult EDM: Chief Complaint: nausea/vomiting HPI: HPI: Patient is an 84 year old male who presents via EMS for evaluation of nausea and vomiting as well as abdominal discomfort. Symptoms have been progressing over the past 24 hours. Patient is very weak and has had trouble standing and walking. Patient is able to answer basic questions and has no focal deficits or lateralizing signs. There is no reported black, bloody or tarry stools. Patient's spouse called in to provide some additional history. Later history given was patient was having some moderate dizziness which made it difficult for him to walk Review of Systems: Review of Systems: Constitutional: Denies fever or chills Eyes: Denies change in visual acuity HENT: Denies nasal congestion or sore throat Respiratory: Denies cough or shortness of breath Cardiovascular: Denies chest pain or edema GI: has abdominal pain with nausea and vomiting, no bloody stools or diarrhea : Denies dysuria Musculoskeletal: Denies back pain or joint pain Integument: Denies rash Neurologic: Denies headache, focal weakness or sensory changes Endocrine: Denies polyuria or polydipsia Lymphatic: Denies swollen glands Psychiatric: Denies depression or anxiety Heart Score: HEART Score for Chest Pain: HEART Score for Chest Pain Response (Comments) Value History Slighlty/Non-Suspicious 0 ECG Nonspecific Repolarizatio 1 Age > 65 2 Risk Factors >3 Risk Factors or Hx CAD 2 Troponin < Normal Limit 0 Total 5 Risk Factors: Risk Factors: DM, Current or recent (<one month) smoker, HTN, HLP, family history of CAD, obesity. Risk Scores: Score 0 - 3: 2.5% MACE over next 6 weeks - Discharge Home Score 4 - 6: 20.3% MACE over next 6 weeks - Admit for Clinical Observation Score 7 - 10: 72.7% MACE over next 6 weeks - Early Invasive Strategies Allergies: Allergies: Allergies Coded Allergies Type Severity Reaction Last Updated Verified No Known Drug Allergies 06/19/19 No Physical Exam: PE: Constitutional: Well developed, well nourished, moderate distress, non-toxic appearance. [] HENT: Normocephalic, atraumatic, bilateral external ears normal, oropharynx moist, no oral exudates, nose normal. [] Eyes: PERRL, EOMI, conjunctiva normal, no discharge. [] Neck: Normal range of motion, no tenderness, supple, no stridor. [] Cardiovascular:Heart rate regular rhythm, no murmur [] Lungs & Thorax: Bilateral breath sounds clear to auscultation [] Abdomen: Diminished bowel sounds soft, no tenderness, no masses, no pulsatile masses. [] Skin: Warm, dry, no erythema, no rash. [] Back: No tenderness, no CVA tenderness. [] Extremities: No tenderness, no cyanosis, no clubbing, ROM intact, no edema. [] Neurologic: Alert and oriented, normal motor function, normal sensory function, no focal deficits noted. [] Psychologic: Affect normal, judgement normal, mood normal. [] Current Patient Data: Labs: Laboratory Tests Test 09/26/19 18:20 09/26/19 18:36 09/26/19 20:22 09/26/19 21:35 White Blood Count 3.4 x10^3/uL Red Blood Count 3.78 x10^6/uL Hemoglobin 11.7 g/dL Hematocrit 35.1 % Mean Corpuscular Volume 93 fL Mean Corpuscular Hemoglobin 31 pg Mean Corpuscular Hemoglobin Concent 33 g/dL Red Cell Distribution Width 16.3 % Platelet Count 143 x10^3/uL Neutrophils (%) (Auto) 78 % Lymphocytes (%) (Auto) 15 % Monocytes (%) (Auto) 5 % Eosinophils (%) (Auto) 1 % Basophils (%) (Auto) 1 % Neutrophils # (Auto) 2.7 x10^3uL Lymphocytes # (Auto) 0.5 x10^3/uL Monocytes # (Auto) 0.2 x10^3/uL Eosinophils # (Auto) 0.0 x10^3/uL Basophils # (Auto) 0.0 x10^3/uL Prothrombin Time 21.8 SEC Prothromb Time International Ratio 2.0 Activated Partial Thromboplast Time 35 SEC Sodium Level mmol/L 136 mmol/L Potassium Level mmol/L 4.4 mmol/L Chloride Level 124 mmol/L 101 mmol/L Carbon Dioxide Level 24 mmol/L 26 mmol/L Anion Gap 42 9 Blood Urea Nitrogen 19 mg/dL 18 mg/dL Creatinine 1.1 mg/dL 1.3 mg/dL Estimated GFR (Cockcroft-Gault) 63.6 52.5 BUN/Creatinine Ratio 17 14 Glucose Level 141 mg/dL 123 mg/dL Calcium Level Pending 8.6 mg/dL Total Bilirubin 0.4 mg/dL 0.4 mg/dL Aspartate Amino Transf (AST/SGOT) 24 U/L 25 U/L Alanine Aminotransferase (ALT/SGPT) 17 U/L 19 U/L Alkaline Phosphatase 82 U/L 95 U/L Troponin I Quantitative 0.038 ng/mL Total Protein 6.6 g/dL 7.4 g/dL Albumin 3.4 g/dL 3.7 g/dL Albumin/Globulin Ratio 1.1 1.0 Lipase 110 U/L QT-Qus-P-Type Natriuretic Peptide 2543 pg/mL Urine Collection Type Unknown Urine Color Yellow Urine Clarity Clear Urine pH 7.0 Urine Specific Aspers 1.020 Urine Protein 30 mg/dl Urine Glucose (UA) Neg mg/dL Urine Ketones (Stick) 15 mg/dL Urine Blood Small Urine Nitrite Neg Urine Bilirubin Neg Urine Urobilinogen Dipstick 0.2 mg/dL Urine Leukocyte Esterase Neg Urine RBC 3-5 /HPF Urine WBC 0 /HPF Urine Squamous Epithelial Cells Occ /LPF Urine Bacteria Few /HPF Urine Mucus Slight /LPF Current Medications Medications (Trade) Dose Ordered Sig/Shiraz Route PRN Reason Start Time Stop Time Status Last Admin Dose Admin Sodium Chloride 1,000 ml @ 1,000 mls/hr Q1H IV 09/26/19 18:09 09/26/19 19:08 DC 09/26/19 18:27 Sodium Chloride (Normal Saline Flush) 10 ml QSHIFT PRN IV AFTER MEDS AND BLOOD DRAWS 09/26/19 18:15 Famotidine (Pepcid Vial) 20 mg 1X ONCE IVP 09/26/19 18:45 09/26/19 18:46 DC 09/26/19 18:30 Ondansetron HCl (Zofran) 4 mg 1X ONCE IVP 09/26/19 18:45 09/26/19 18:46 DC 09/26/19 18:27 Meclizine HCl (Antivert) 12.5 mg 1X ONCE PO 09/26/19 22:00 09/26/19 22:01 DC 09/26/19 21:35 EKG: EKG: Sinus rhythm, intraventricular block, left axis deviation cannot exclude old lateral infarct, read at 1821, rate mid 60s; no significant interval changes when compared to EKG from 08/24/2019. Right bundle branch block and wide QRS noted at that time as well [] Radiology/Procedures: Radiology/Procedures: [address] [address] IMAGING REPORT Signed PATIENT: FRANKO SEN ACCOUNT: [id number] : 1935 LOCATION: ER AGE: 84 SEX: M EXAM STATUS: REG ER ORD. PHYSICIAN: CAESAR OH DO REASON: Short of air, abd pain, vomiting, cough, congestion. Hx: COPD PROCEDURE: ACUTE ABDOMEN SERIES Exam: Acute abdominal series INDICATION: Short of air, abdominal pain, vomiting and cough TECHNIQUE: Frontal view of the chest with upright and supine views of the abdomen Comparisons: Chest x-ray 08/24/2019 FINDINGS: The cardiomediastinal silhouette and pulmonary vessels are within normal limits. The lung and pleural spaces are clear. Aortobiiliac stent graft is noted. Air and stool are noted throughout the colon to level the rectum in a nonobstructive bowel gas pattern. Moderate amount stool is noted predominantly within the descending colon and rectum. No suspicious masses or calcifications. Visualized osseous structures are unremarkable. IMPRESSION: 1. No acute cardiopulmonary process. 2. Nonobstructive bowel gas pattern. Moderate stool burden. Electronically signed by: Darrel Varghese MD (09/26/2019 7:13 PM) [id number] DICTATED AND SIGNED BY: DARREL VARGHESE MD DATE: 09/26/191912 CC: CAESAR OH DO; KAYLEE HILARIO ~ [address] [address] IMAGING REPORT Signed PATIENT: FRANKO SEN ACCOUNT: [id number] : 1935 LOCATION: ER AGE: 84 SEX: M EXAM STATUS: REG ER ORD. PHYSICIAN: CAESAR OH DO REASON: Dizziness on blood thinner PROCEDURE: CT HEAD WO CONTRAST STUDY: CT head without contrast INDICATION: Dizziness in the setting of anticoagulation. COMPARISON: None recently. TECHNIQUE: Axial CT imaging through the head without the use of intravenous contrast. Sagittal and coronal reformats were obtained. One or more of the following individualized dose reduction techniques were utilized for this examination: 1. Automated exposure control 2. Adjustment of the mA and/or kV according to patient size 3. Use of iterative reconstruction technique. FINDINGS: No acute intracranial hemorrhage. No CT evidence for an acute cortical infarction. No mass effect, midline shift or hydrocephalus. White matter findings as can be seen in the setting of chronic microvascular ischemic change. 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 Intracranial atherosclerotic calcifications. Generalized parenchymal volume loss. Unremarkable orbits. Intact calvarium. Normally aerated mastoid air cells and middle ears. IMPRESSION: 1. No acute intracranial abnormality by CT. 2. 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 If there is concern for an acute ischemic event MRI could be considered. 3. Additional chronic/senescent findings as above. Electronically signed by: SHANE QUINONES MD (09/26/2019 9:52 PM) [id number] Course & Med Decision Making: Course & Med Decision Making Pertinent Labs and Imaging studies reviewed. (See chart for details) 2124 stable, nausea improved but patient still having mild dizziness particu larly when standing and walking. In light of the fact patient is on a blood thinner we will get CT head without contrast. Furthermore we are working to collect a urine sample for further analysis. [] Dragon Disclaimer: Dragon Disclaimer: This electronic medical record was generated, in whole or in part, using a voice recognition dictation system. 2209 stable, patient has been reassessed multiple times. He states he is less dizzy now than when he came in. Etiology of that dizziness is unclear as the cardiac work-up, labs, CT head and urinalysis were all stable and unremarkable. No acute findings on his EKG noted. Will ambulate before final disposition decision 2239 stable, case discussed with patient at length. He no longer has any nausea and his dizziness is controlled. 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 He did not take that medication tonight and his symptoms have improved. Patient is not ort hostatic. He is able to ambulate with a steady gait. Patient has no focal deficits or lateralizing signs. Patient will call his doctor first thing tomorrow. Considerations included cardiac event, electrolyte disturbance, stroke, urinary tract infection versus vertigo versus side effect to medication treatment that caused his dizziness and then nausea and vomiting. No dangerous etiology determined at this time. Patient does not require admission tonight. Patient has not had any recent chest pain or shortness of air now, today or recently. Departure Departure: Impression: Primary Impression: Dizziness Additional Impression: Nausea and vomiting Qualified Codes: R11.2 - Nausea with vomiting, unspecified Disposition: HOME/RESIDENCE PRIOR TO ADM Condition: STABLE Referrals: KAYLEE HILARIO (PCP) Patient Instructions: Dizziness, Nausea and Vomiting Additional Instructions: Drink plenty fluids, rest, call your doctor right away tomorrow. Go ahead and hold your dose of carbamazepine tonight. Should any more serious symptoms dev elop such as chest pain or shortness of air immediately return to the hospital. Your heart blood work, EKG, CT head scan as well as blood work and urinalysis tonight were stable and unremarkable Scripts Promethazine Hcl (PROMETHAZINE HCL) 12.5 Mg Tablet 1 TAB PO Q6-8HRS for motion sickness for 5 Days, #20 TAB 0 Refills Prov: CAESAR OH DO 09/26/19 Justification of Admission: Justification of Admission: Justification of Admission Dx: N/A CAESAR OH DO Sep 26, 2019 18:09
[2019-09-26] MEDS ORDERED: 0.9 % SODIUM CHLORIDE 10 ML DISP.SYRIN. IV PRN (18:15)
[2019-09-26] MEDS ORDERED: ONDANSETRON PF 4 MG/2 ML VIAL. IVP ONE (18:45)
[2019-09-26] MEDS ORDERED: FAMOTIDINE 20 MG/2 ML VIAL IVP ONE (18:45)
[2019-09-26 18:52] LABS: BASO % 1 % (0-3); EOS % 1 % (0-3); HEMATOCRIT 35.1 % (39.0-53.0); HEMOGLOBIN 11.7 g/dL (13.0-17.5); LYMPH # 0.5 x10^3/uL (1.0-4.8); LYMPH % 15 % (24-48); MEAN CORPUSCULAR HEMOGLOBIN 31 pg (25-35); MEAN CORPUSCULAR HGB CONC 33 g/dL (31-37); MEAN CORPUSCULAR VOLUME 93 fL (79-100); MONO # 0.2 x10^3/uL (0.0-1.1); MONO % 5 % (0-9); NEUT # 2.7 x10^3uL (1.8-7.7); NEUT % 78 % (31-73); PLATELET COUNT 143 x10^3/uL (140-400); RED BLOOD COUNT 3.78 x10^6/uL (4.30-5.70); RED CELL DISTRIBUTION WIDTH 16.3 % (11.5-14.5); WHITE BLOOD COUNT 3.4 x10^3/uL (4.0-11.0)
--- NOTE | 2019-09-26 19:16 | RAD ---
Exam: Acute abdominal series INDICATION: Short of air, abdominal pain, vomiting and cough TECHNIQUE: Frontal view of the chest with upright and supine views of the abdomen Comparisons: Chest x-ray 08/24/2019 FINDINGS: The cardiomediastinal silhouette and pulmonary vessels are within normal limits. The lung and pleural spaces are clear. Aortobiiliac stent graft is noted. Air and stool are noted throughout the colon to level the rectum in a nonobstructive bowel gas pattern. Moderate amount stool is noted predominantly within the descending colon and rectum. No suspicious masses or calcifications. Visualized osseous structures are unremarkable. IMPRESSION: 1. No acute cardiopulmonary process. 2. Nonobstructive bowel gas pattern. Moderate stool burden. Electronically signed by: Darrel Franco MD (09/26/2019 7:13 PM) [id number]
[2019-09-26 21:14] LABS: CALCIUM 8.6 mg/dL (8.5-10.1); CREATININE 1.3 mg/dL (0.7-1.3); GFR 52.5; POTASSIUM 4.4 mmol/L (3.5-5.1)
[2019-09-26 21:19] LABS: ALBUMIN 3.7 g/dL (3.4-5.0); TOTAL BILIRUBIN 0.4 mg/dL (0.2-1.0); TOTAL PROTEIN 7.4 g/dL (6.4-8.2)
--- NOTE | 2019-09-26 21:55 | RAD ---
STUDY: CT head without contrast INDICATION: Dizziness in the setting of anticoagulation. COMPARISON: None recently. TECHNIQUE: Axial CT imaging through the head without the use of intravenous contrast. Sagittal and coronal reformats were obtained. One or more of the following individualized dose reduction techniques were utilized for this examination: 1. Automated exposure control 2. Adjustment of the mA and/or kV according to patient size 3. Use of iterative reconstruction technique. FINDINGS: No acute intracranial hemorrhage. No CT evidence for an acute cortical infarction. No mass effect, midline shift or hydrocephalus. White matter findings as can be seen in the setting of chronic microvascular ischemic change. There are several remote-appearing gas operation manager infarcts as well such as at the right caudate head, upper margin of the left lentiform nucleus and right cerebellar hemisphere. Intracranial atherosclerotic calcifications. Generalized parenchymal volume loss. Unremarkable orbits. Intact calvarium. Normally aerated mastoid air cells and middle ears. IMPRESSION: 1. No acute intracranial abnormality by CT. 2. Several gas operation manager infarcts which exhibit features of chronicity but no comparison studies are available to confirm stability. If there is concern for an acute ischemic event MRI could be considered. 3. Additional chronic/senescent findings as above. Electronically signed by: SHANE QUINONES MD (09/26/2019 9:52 PM) [id number]
[2019-09-26 21:58] LABS: BILIRUBIN,URINE NEG (NEG); CLARITY,URINE CLEAR; COLOR,URINE YELLOW; GLUCOSE,URINE NEG (NEG); NITRITE,URINE NEG (NEG); UROBILINOGEN,URINE 0.2 mg/dL (0.2 mg/dL)
[2019-09-26] MEDS ORDERED: MECLIZINE 12.5 MG TABLET. PO ONE (22:00)
[2019-09-26 22:01] LABS: BACTERIA,URINE FEW /HPF (0-FEW); SQUAMOUS EPITHELIAL CELL,UR OCC /LPF; WBC,URINE 0 /HPF (0-4)
[2019-09-26 22:23] VITALS: BP 166/88
[2019-09-26] MEDS ORDERED: PROM12.58 PO (22:47)
--- NOTE | 2019-09-28 07:59 | EKG ---
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
== END 2019-09-27 01:00 | disposition home or self-care (01) ==
LOC: ER 18:07
DX: R11.2 Nausea with vomiting, unspecified (principal); R42 Dizziness and giddiness; R53.1 Weakness; I48.91 Unspecified atrial fibrillation; M19.90 Unspecified osteoarthritis, unspecified site; I25.810 Atherosclerosis of coronary artery bypass graft(s) without angina pectoris; J44.9 Chronic obstructive pulmonary disease, unspecified; I11.9 Hypertensive heart disease without heart failure; I25.2 Old myocardial infarction; F17.210 Nicotine dependence, cigarettes, uncomplicated; Z86.2 Personal history of diseases of the blood and blood-forming organs and certain disorders involving the immune mechanism; Z98.61 Coronary angioplasty status
CPT/HCPCS: 36415; 70450; 74022; 80053; 81001; 83690; 83880; 84484; 85025; 85610; 85730; 93005; 96361; 96374; 96375; 99285; J2405; J3490; J8597; J7030

== ENCOUNTER → 2020-01-18 | Outpatient (CLI) | payer MEDICARE ==
[~2020-01-18] MED LIST changes: +PROM12.58 PO
== END | disposition home or self-care (01) ==
LOC: LAB 09:36
PROVIDERS: ATTEND Radiology Radiation Oncology
DX: Z01.812 Encounter for preprocedural laboratory examination (principal); G50.0 Trigeminal neuralgia; Z20.828 Contact with and (suspected) exposure to other viral communicable diseases
CPT/HCPCS: U0003-CS

== ENCOUNTER 2020-08-16 12:26 | Emergency (ER) | payer MEDICARE ==
[~2020-08-16] VITALS: Ht 177.8 cm; Wt 70.4 kg
[~2020-08-16 12:26] MED LIST changes: -LISI-338 PO; +LISI-517 PO
[2020-08-16] MEDS ORDERED: KETOROLAC 15 MG/ML VIAL. IVP ONE (13:30)
[2020-08-16 13:39] LABS: CREATININE 1.2 mg/dL (0.7-1.3); GFR 57.4; POTASSIUM 4.2 mmol/L (3.5-5.1)
--- NOTE | 2020-08-16 13:45 | EKG ---
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
[2020-08-16 13:47] LABS: BASO % 1 % (0-3); EOS % 0 % (0-3); HEMATOCRIT 29.8 % (39.0-53.0); HEMOGLOBIN 10.2 g/dL (13.0-17.5); LYMPH # 0.8 x10^3/uL (1.0-4.8); LYMPH % 13 % (24-48); MEAN CORPUSCULAR HEMOGLOBIN 34 pg (25-35); MEAN CORPUSCULAR HGB CONC 34 g/dL (31-37); MEAN CORPUSCULAR VOLUME 100 fL (79-100); MONO # 0.6 x10^3/uL (0.0-1.1); MONO % 10 % (0-9); NEUT # 4.4 x10^3uL (1.8-7.7); NEUT % 75 % (31-73); PLATELET COUNT 234 x10^3/uL (140-400); RED BLOOD COUNT 2.98 x10^6/uL (4.30-5.70); RED CELL DISTRIBUTION WIDTH 14.2 % (11.5-14.5); WHITE BLOOD COUNT 5.9 x10^3/uL (4.0-11.0)
[2020-08-16 13:54] LABS: ALBUMIN 3.1 g/dL (3.4-5.0); ALBUMIN/GLOBULIN RATIO 0.9 (1.0-1.7); TOTAL BILIRUBIN 0.6 mg/dL (0.2-1.0); TOTAL PROTEIN 6.6 g/dL (6.4-8.2)
--- NOTE | 2020-08-16 13:57 | RAD ---
EXAM: Chest, 2 views; left shoulder, 3 views. HISTORY: Pain. COMPARISON: 08/24/2019. FINDINGS: 2 views of the chest and 3 views of left shoulder obtained. There is hyperinflation likely due to emphysema. There is a left perihilar nodular opacity with slight irregular margins measuring a pproximately 4.0 cm. There is a stable prominent cardiac silhouette and tortuous and/or ectatic thora cic aorta. There are median sternotomy changes. There is no pleural effusion or pneumothorax. There i s a circumscribed nodule overlying the left lower lobe due to a nipple shadow. There is a generator w ithin the posterior thoracic wall with leads extending cephalad beyond the [id number]. 3 views of the left shoulder demonstrate no fracture, dislocation or subluxation. There is degenerati ve change involving the visualized cervical spine. IMPRESSION: 1. Suspected emphysema. 2. 4.0 cm irregular left hilar nodular opacity. The possibility of neoplasm is not excluded. This can be better assessed with a CT. 3. No acute osseous finding. Electronically signed by: Smiran Wooten MD (08/16/2020 1:55 PM) [id number]
--- NOTE | 2020-08-16 13:57 | RAD ---
EXAM: Chest, 2 views; left shoulder, 3 views. HISTORY: Pain. COMPARISON: 08/24/2019. FINDINGS: 2 views of the chest and 3 views of left shoulder obtained. There is hyperinflation likely due to emphysema. There is a left perihilar nodular opacity with slight irregular margins measuring a pproximately 4.0 cm. There is a stable prominent cardiac silhouette and tortuous and/or ectatic thora cic aorta. There are median sternotomy changes. There is no pleural effusion or pneumothorax. There i s a circumscribed nodule overlying the left lower lobe due to a nipple shadow. There is a generator w ithin the posterior thoracic wall with leads extending cephalad beyond the [id number]. 3 views of the left shoulder demonstrate no fracture, dislocation or subluxation. There is degenerati ve change involving the visualized cervical spine. IMPRESSION: 1. Suspected emphysema. 2. 4.0 cm irregular left hilar nodular opacity. The possibility of neoplasm is not excluded. This can be better assessed with a CT. 3. No acute osseous finding. Electronically signed by: Simran Wooten MD (08/16/2020 1:55 PM) [id number]
--- NOTE | 2020-08-16 14:28 | PHYS DOC ---
Past History Past Medical History: A-Fib, Anemia, Anxiety, Arthritis, Arrhythmia, Bronchitis, CAD, COPD, Heart Disease, Hypertension, [place], Other Additional Past Medical Histor: Cardiac. Past Surgical History: Angioplasty, Coronary Bypass Surgery, Other Additional Past Surgical Histo: 2 cardiac stents Smoking: Cigarettes Alcohol Use: None Drug Use: None Adult General Chief Complaint Chief Complaint: SHOULDER INJURY HPI HPI Patient is a 85-year-old male presents to the emergency department stating he was sent here for cardiac work-up by [facility] related to pain in his left upper shoulder and neck. Patient reports he woke up to go to the bathroom at 2 AM this morning when he noticed that his left shoulder was achy. Patient reports a 5/10 pain on a 1-10 pain scale. Patient denies any recent injury or trauma to his left shoulder or neck. Patient states on August 06 he had a nerve stimulator placed in his back to relieve TMJ symptoms. Patient denies chest pain, denies shortness of breath, denies throat pain chest congestion cough or recent fever or chills. Patient denies abdominal pain, nausea, vomiting, diarrhea or constipation. Patient states he thinks the pain is coming from his nerve stimulator placement however when he called [facility] they advised him that his pain was most likely coming from his heart and to come straight to [place] emergency department for an evaluation of his heart. Patient states he has had heart problems in the past and the symptoms are not similar to his heart problems. Patient reports a history of COPD, hypertension, cardiac disease. Patient reports taking albuterol, amiodarone, Breo Ellipta, carbamazepine, Plavix, gabapentin, lisinopril, metoprolol, oxycodone for chronic aches and pains, Crestor, spironolactone, and Coumadin. Patient denies any allergies to medications. Review of Systems Review of Systems 14 body systems of review of systems have been reviewed. See HPI for pertinent positives and negative responses, otherwise all other systems are negative, nonpertinent or noncontributory. Current Medications Current Medications Current Medications Medications (Trade) Dose Ordered Sig/Shiraz Start Time Stop Time Status Last Admin Dose Admin Ketorolac Tromethamine (Toradol 15mg Vial) 15 mg 1X ONCE 08/16/20 13:30 08/16/20 13:35 DC 08/16/20 14:16 15 MG Allergies Allergies Allergies Coded Allergies Type Severity Reaction Last Updated Verified No Known Drug Allergies 06/19/19 No Physical Exam Physical Exam Constitutional: Well developed, well nourished, no acute distress, non-toxic appearance. 85-year-old male no apparent distress. HENT: Normocephalic, atraumatic, bilateral external ears normal, oropharynx moist, no oral exudates, nose normal. Oropharynx moist, pink, no deep tissue infectious process appreciated, no trismus, no drooling appreciated, no lymphadenopathy of the head or neck. Eyes: PERRLA, EOMI, conjunctiva normal, no discharge. Neck: Normal range of motion, no tenderness, supple, no stridor. No nuchal rigidity, no meningismus signs. Pain to palpation along left trapezius muscle. Cardiovascular:Heart rate regular rhythm, no murmur, heart sounds S1-S2 to auscultation. Lungs & Thorax: Bilateral breath sounds clear to auscultation all lung valdez, no adventitious lung sounds appreciated. Abdomen: Bowel sounds normal, soft, no tenderness, no masses, no pulsatile masses. Skin: Warm, dry, no erythema, no rash. Back: No tenderness, no CVA tenderness. Extremities: No tenderness, no cyanosis, no clubbing, ROM intact, no edema. No pain elicited with passive range of motion of the left shoulder joint or deltoid shoulder muscles, no crepitus appreciated, no bruising or deformity of the shoulder appreciated. Distal cap refill less than 2 seconds, no swelling or edema of the upper extremities, +2/4 pulses. Neurologic: Alert and oriented X 3, normal motor function, normal sensory function, no focal deficits noted. Psychologic: Affect normal, judgement normal, mood normal. Current Patient Data Vital Signs Vital Signs Date Time Temp Pulse Resp B/P (MAP) Pulse Ox O2 Delivery O2 Flow Rate FiO2 08/16/20 12:51 97.4 98 16 107/66 (80) 97 Room Air Lab Results Laboratory Tests Test 08/16/20 13:09 White Blood Count 5.9 x10^3/uL Red Blood Count 2.98 x10^6/uL Hemoglobin 10.2 g/dL Hematocrit 29.8 % Mean Corpuscular Volume 100 fL Mean Corpuscular Hemoglobin 34 pg Mean Corpuscular Hemoglobin Concent 34 g/dL Red Cell Distribution Width 14.2 % Platelet Count 234 x10^3/uL Neutrophils (%) (Auto) 75 % Lymphocytes (%) (Auto) 13 % Monocytes (%) (Auto) 10 % Eosinophils (%) (Auto) 0 % Basophils (%) (Auto) 1 % Neutrophils # (Auto) 4.4 x10^3uL Lymphocytes # (Auto) 0.8 x10^3/uL Monocytes # (Auto) 0.6 x10^3/uL Eosinophils # (Auto) 0.0 x10^3/uL Basophils # (Auto) 0.0 x10^3/uL Sodium Level 137 mmol/L Potassium Level 4.2 mmol/L Chloride Level 101 mmol/L Carbon Dioxide Level 25 mmol/L Anion Gap 11 Blood Urea Nitrogen 24 mg/dL Creatinine 1.2 mg/dL Estimated GFR (Cockcroft-Gault) 57.4 BUN/Creatinine Ratio 20 Glucose Level 140 mg/dL Calcium Level 9.0 mg/dL Total Bilirubin 0.6 mg/dL Aspartate Amino Transf (AST/SGOT) 31 U/L Alanine Aminotransferase (ALT/SGPT) 39 U/L Alkaline Phosphatase 119 U/L Creatine Kinase 204 U/L Creatine Kinase MB (Mass) 1.2 ng/mL Creatine Kinase MB Relative Index 0.6 % Troponin I Quantitative 0.032 ng/mL Total Protein 6.6 g/dL Albumin 3.1 g/dL Albumin/Globulin Ratio 0.9 Current Medications Medications (Trade) Dose Ordered Sig/Shiraz Route PRN Reason Start Time Stop Time Status Last Admin Dose Admin Ketorolac Tromethamine (Toradol 15mg Vial) 15 mg 1X ONCE IVP 08/16/20 13:30 08/16/20 13:35 DC 08/16/20 14:16 Cyclobenzaprine HCl (Flexeril) 5 mg 1X ONCE PO 08/16/20 14:45 08/16/20 14:52 DC 08/16/20 14:45 Morphine Sulfate (Morphine 4mg Syringe) 4 mg 1X ONCE IV 08/16/20 14:45 08/16/20 14:52 DC 08/16/20 14:52 Laboratory Tests Test 08/16/20 13:09 White Blood Count 5.9 x10^3/uL (4.0-11.0) Red Blood Count 2.98 x10^6/uL (4.30-5.70) L Hemoglobin 10.2 g/dL (13.0-17.5) L Hematocrit 29.8 % (39.0-53.0) L Mean Corpuscular Volume 100 fL (79-100) Mean Corpuscular Hemoglobin 34 pg (25-35) Mean Corpuscular Hemoglobin Concent 34 g/dL (31-37) Red Cell Distribution Width 14.2 % (11.5-14.5) Platelet Count 234 x10^3/uL (140-400) Neutrophils (%) (Auto) 75 % (31-73) H Lymphocytes (%) (Auto) 13 % (24-48) L Monocytes (%) (Auto) 10 % (0-9) H Eosinophils (%) (Auto) 0 % (0-3) Basophils (%) (Auto) 1 % (0-3) Neutrophils # (Auto) 4.4 x10^3uL (1.8-7.7) Lymphocytes # (Auto) 0.8 x10^3/uL (1.0-4.8) L Monocytes # (Auto) 0.6 x10^3/uL (0.0-1.1) Eosinophils # (Auto) 0.0 x10^3/uL (0.0-0.7) Basophils # (Auto) 0.0 x10^3/uL (0.0-0.2) Sodium Level 137 mmol/L (136-145) Potassium Level 4.2 mmol/L (3.5-5.1) Chloride Level 101 mmol/L (98-107) Carbon Dioxide Level 25 mmol/L (21-32) Anion Gap 11 (6-14) Blood Urea Nitrogen 24 mg/dL (8-26) Creatinine 1.2 mg/dL (0.7-1.3) Estimated GFR (Cockcroft-Gault) 57.4 BUN/Creatinine Ratio 20 (6-20) Glucose Level 140 mg/dL (70-99) H Calcium Level 9.0 mg/dL (8.5-10.1) Total Bilirubin 0.6 mg/dL (0.2-1.0) Aspartate Amino Transferase (AST) 31 U/L (15-37) Alanine Aminotransferase (ALT) 39 U/L (16-63) Alkaline Phosphatase 119 U/L (46-116) H Creatine Kinase 204 U/L (39-308) Creatine Kinase MB (Mass) 1.2 ng/mL (0.0-3.6) Creatine Kinase MB Relative Index 0.6 % (0-4) Troponin I Quantitative 0.032 ng/mL (0-0.055) Total Protein 6.6 g/dL (6.4-8.2) Albumin 3.1 g/dL (3.4-5.0) L Albumin/Globulin Ratio 0.9 (1.0-1.7) L EKG EKG EKG performed at 1252 by house respiratory therapy staff, shows a normal sinus rhythm without ectopy heart rate 96 bpm, NM interval 0.200, QTc interval 0.501 no ACS, no ischemia, no STEMI appreciated, EKG interpreted by ED attending physician Dr. Valdivia. Radiology/Procedures Radiology/Procedures PATIENT: FRANKO SEN ACCOUNT: [id number] : 1935 LOCATION: ER AGE: 85 SEX: M EXAM STATUS: REG ER ORD. PHYSICIAN: GURMEET DEMPSEY APRN REASON: LEFT SHOULDER PAIN PROCEDURE: SHOULDER 2+V LEFT EXAM: Chest, 2 views; left shoulder, 3 views. HISTORY: Pain. COMPARISON: 08/24/2019. FINDINGS: 2 views of the chest and 3 views of left shoulder obtained. There is hyperinflation likely due to emphysema. There is a left perihilar nodular opacity with slight irregular margins measuring approximately 4.0 cm. There is a stable prominent cardiac silhouette and tortuous and/or ectatic thoracic aorta. There are median sternotomy changes. There is no pleural effusion or pne umothorax. There is a circumscribed nodule overlying the left lower lobe due to a nipple shadow. There is a generator within the posterior thoracic wall with leads extending cephalad beyond the [id number]. 3 views of the left shoulder demonstrate no fracture, dislocation or subluxation. There is degenerative change involving the visualized cervical spine. IMPRESSION: 1. Suspected emphysema. 2. 4.0 cm irregular left hilar nodular opacity. The possibility of neoplasm is not excluded. This can be better assessed with a CT. 3. No acute osseous finding. Electronically signed by: Simran Gautam MD (08/16/2020 1:55 PM) [id number] DICTATED AND SIGNED BY: SIMRAN GAUTAM MD DATE: 08/16/20 135 CC: GURMEET DEMPSEY APRN; KAYLEE HILARIO ~MTH0 0 PATIENT: FRANKO SEN ACCOUNT: [id number] : 1935 LOCATION: ER AGE: 85 SEX: M EXAM STATUS: REG ER ORD. PHYSICIAN: GURMEET DEMPSEY APRN REASON: LEFT SHOULDER PAIN PROCEDURE: CHEST PA & LATERAL EXAM: Chest, 2 views; left shoulder, 3 views. HISTORY: Pain. COMPARISON: 08/24/2019. FINDINGS: 2 views of the chest and 3 views of left shoulder obtained. There is hyperinflation likely due to emphysema. There is a left perihilar nodular opacity with slight irregular margins measuring approximately 4.0 cm. There is a stable prominent cardiac silhouette and tortuous and/or ectatic thoracic aorta. There are median sternotomy changes. There is no pleural effusion or pneumothorax. There is a circumscribed nodule overlying the left lower lobe due to a nipple shadow. There is a generator within the posterior thoracic wall with leads extending cephalad beyond the [id number]. 3 views of the left shoulder demonstrate no fracture, dislocation or subluxation. There is degenerative change involving the visualized cervical spine. IMPRESSION: 1. Suspected emphysema. 2. 4.0 cm irregular left hilar nodular opacity. The possibility of neoplasm is not excluded. This can be better assessed with a CT. 3. No acute osseous finding. Electronically signed by: Simran Gautam MD (08/16/2020 1:55 PM) [id number] DICTATED AND SIGNED BY: SIMRAN GAUTAM MD DATE: 08/16/20 135 CC: GURMEET DEMPSEY APRN; KAYLEE HILARIO ~MTH0 0 Heart Score C/O Chest Pain: No Risk Factors: Risk Factors: DM, Current or recent (<one month) smoker, HTN, HLP, family history of CAD, obesity. Risk Scores: Risk Factors: DM, Current or recent (<one month) smoker, HTN, HLP, family history of CAD, obesity. Course & Med Decision Making Course & Med Decision Making Pertinent Labs and Imaging studies reviewed. (See chart for details) 85-year-old male, vital signs reviewed, presents to the emergency department requesting a cardiac work-up for waking up with left shoulder pain at 2 AM this morning. Physical examination consistent with right neck versus strained trapezius muscle. Related to patient being sent here by his [facility] specialist for cardiac work-up, a cardiopulmonary work-up was initiated in the ER. Patient is EKG unremarkable, troponinI was not elevated, CBC and CMP unremarkable. X-ray of the left shoulder unremarkable for acute process per radiologist interpretation. Chest x-ray PA and lateral concerning for 4 cm mass left upper lobe. Discussed this with patient who is aware of this stating they have been monitoring this mass for over a year now noting that it is shrinking in size stating 4 cm is smaller than it was the last time it was evaluated. Discussed with patient pain in left upper shoulder area most likely a strained muscle. Patient stated he did find pain relief with IV Toradol, IV morphine, 5 mg p.o. Flexeril given in the ED. Patient states his pain is now 2/10 with a 10 pain scale. Will recommend patient take 5 mg Flexeril up to 3 times a day as needed for muscle discomfort, continue to take his normal chronic pain medications at home, follow-up with his primary care or his neurologist at for ongoing pain management. Patient gave verbal understanding of discharge home instructions, follow-up with primary care or neurology at soon, return to ER precautions or concerns, gave verbal understanding of Flexeril use, patient had no further questions or concerns and was discharged home without incident. Dragon Disclaimer Dragon Disclaimer This electronic medical record was generated, in whole or in part, using a voice recognition dictation system. Departure Departure: Impression: Primary Impression: Strain of neck muscle Disposition: HOME / SELF CARE / HOMELESS Condition: GOOD Referrals: KAYLEE HILARIO (PCP) Additional Instructions: You are seen today in the emergency department for pain in your left shoulder and neck area. A complete cardiopulmonary work-up was initiated in the ER today. There were no concerning findings that would require immediate attention by a quill reamer or admission to the hospital today. You found pain relief with the muscle relaxer and pain medication I gave you in the ED today. I am prescribing you 5 mg Flexeril to take up to 3 times a day as needed over the next few days. Please follow-up with Dr. Calhoun or your neurologist for ongoing aches and pains. Return to the emergency department for worsening symptoms or other concerns. EMERGENCY DEPARTMENT GENERAL DISCHARGE INSTRUCTIONS Thank you for coming to [facility] (ED) today and trusting us with you care. We trust that you had a positivie experience in our Emergency Department. If you wish to speak to the department management, you may call the director at [phone]. YOUR FOLLOW UP INSTRUCTIONS ARE FOLLOWS: 1. Do you have a private Doctor? If you do not have a private doctor, please ask for a resource list of physicians or clinics that may be able to assist you with follow up care. 2. The Emergency Physician has interpreted your x-rays. The X-Ray specialist will also review them. If there is a change in the findings, you will be notified in 48 hours when at all possible. 3. A lab test or culture has been done, your results will be reviewed and you will be notified if you need a change in treatment. ADDITIONAL INSTRUCTIONS AND INFORMATION: 1. Your care today has been supervised by a physician who is specially trained in emergency care. Many problems require more than one evaluation for a complete diagnosis and treatment. We recommend that you schedule your follow up appointment as recommended to ensure complete treatment of you illness or injury. If you are unable to obtain follow up care and continue to have a problem, or if your condition worsens, we recommend that you return to the ED. 2. We are not able to safely determine your condition over the phone nor are we able to give sound medical advice over the phone. For these safety reasons, if you call for medical advice we will ask you to come to the ED for further evaluation. 3. If you have any questions regarding these discharge instructions please call the ED at [phone]. SAFETY INFORMATION: In the interest of safety, wellness, and injury prevention; we encourage you to wear your sealbelt, if you smoke; quite smoking, and we encourage family to use a protective helmet for bicycling and other sporting events that present an increased risk for head injury. IF YOUR SYMPTOMS WORSEN OR NEW SYMPTOMS DEVELOP, OR YOU HAVE CONCERNS ABOUT YOUR CONDITION; OR IF YOUR CONDITION WORSENS WHILE YOU ARE WAITING FOR YOUR FOLLOW UP APPOINTMENT; EITHER CONTACT YOUR PRIMARY CARE DOCTOR, THE PHYSICIAN WHOSE NAME AND NUMBER YOU WERE GIVEN, OR RETURN TO THE ED IMMEDIATELY. Scripts Cyclobenzaprine Hcl (CYCLOBENZAPRINE HCL) 5 Mg Tablet 1 TAB PO TID PRN for MUSCLE PAIN, #12 TAB 0 Refills Prov: GURMEET DEMPSEY APRN 08/16/20 Problem Qualifiers Primary Impression: Strain of neck muscle Encounter type: initial encounter Qualified Codes: S16.1XXA - Strain of muscle, fascia and tendon at neck level, initial encounter GURMEET DEMPSEY APRN Aug 16, 2020 14:28
[2020-08-16] MEDS ORDERED: MORPHINE SULFATE 4 MG/ML DISP.SYRIN. IV ONE (14:45)
[2020-08-16] MEDS ORDERED: CYCLOBENZAPRINE 10 MG TABLET. PO ONE (14:45)
[2020-08-16] MEDS ORDERED: CYCL5TAB PO (15:57)
[2020-08-16 16:00] VITALS: BP 131/68
== END 2020-08-16 16:05 | disposition home or self-care (01) ==
LOC: ER 12:26
DX: S16.1XXA Strain of muscle, fascia and tendon at neck level, initial encounter (principal); I48.91 Unspecified atrial fibrillation; F41.9 Anxiety disorder, unspecified; I25.810 Atherosclerosis of coronary artery bypass graft(s) without angina pectoris; J44.9 Chronic obstructive pulmonary disease, unspecified; I11.9 Hypertensive heart disease without heart failure; I25.2 Old myocardial infarction; F17.210 Nicotine dependence, cigarettes, uncomplicated; Z98.61 Coronary angioplasty status; Z86.2 Personal history of diseases of the blood and blood-forming organs and certain disorders involving the immune mechanism; X58.XXXA Exposure to other specified factors, initial encounter; Y93.89 Activity, other specified; Y92.89 Other specified places as the place of occurrence of the external cause; Y99.8 Other external cause status
CPT/HCPCS: 36415; 71046; 73030; 80053; 82553; 84484; 85025; 93005; 96374; 96375; 99285; J1885; J2270

== ENCOUNTER → 2020-12-27 | Outpatient (CLI) | payer MEDICARE ==
[~2020-12-27] MED LIST changes: +CYCL5TAB PO; +IOHEXOL 300 MG/ML 75 ML VIAL. IV ONE
[2020-12-27 10:38] LABS: CREATININE 1.2 mg/dL (0.7-1.3); GFR 57.4
--- NOTE | 2020-12-27 15:34 | RAD ---
CT of the chest with contrast 12/27/2020 INDICATION: Neoplasm. COMPARISON STUDY: Chest radiograph August 16, 2020. PET/CT October 21, 2017 TECHNIQUE: Multidetector CT imaging of the chest was performed following the administration of IV con trast findings: Heart size is normal. No pericardial effusion is identified. Dense coronary calcifica tion is seen. Mildly prominent mediastinal lymph node noted immediately anterior to the pramod measur ing 1.2 x 1.0 cm. Scattered smaller mediastinal lymph nodes noted. Mildly prominent node in the right hilum also noted. There is severe diffuse emphysematous change. Scarring involving the bilateral carson g apices is noted. There is no pneumothorax or pleural effusion. Costophrenic granuloma noted in the left upper lobe. There is a spiculated masslike consolidation in the left upper lobe, with solid-appearing component measuring 2.1 cm in diameter. Review of prior PET scan demonstrates a PET avid nodule, and a similar position within the lung in 2018. No acute focal consolidation is identified. No other suspicious nodules or masses are the thoracic ao rta is ectatic measuring approximately 3.4 cm at the level the main pulmonary artery. There is mild f ocal dilatation of the mid descending thoracic aorta up to 3 cm in diameter. 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 Limited evaluation of the upper abdomen demonstrates calcificat ion of the right adrenal gland without focal mass. Multiple hepatic cysts noted. The appearance is si milar to comparison exams. IMPRESSION: 1. 2.1 cm spiculated masslike consolidation in the left upper lobe, and a site of prior PET avid lesi on seen on CT PET CT from October 2017.. This may represent post radiation change, recurrent malignancy, or combination thereof. Recommend comparison with intermixed scans if available, and consideration o f PET/CT for further evaluation. 2. Severe emphysematous changes 3. Mildly prominent mediastinal lymph node anterior to the pramod measuring 1.2 x 1.0 cm. Mildly prom inent right hilar node also noted. PET/CT evaluation could be performed as clinically indicated. CT DOSING PQRS STATEMENT: One or more of the following individualized dose reduction techniques were utilized for this examinat ion: 1. Automated exposure control 2. Adjustment of the mA and/or kV according to patient size 3. Use of iterative reconstruction technique Electronically signed by: Carlitos Rivero MD (12/27/2020 3:31 PM) [id number]
== END ==
LOC: CT 10:07
PROVIDERS: ATTEND Radiology Radiation Oncology
DX: C34.12 Malignant neoplasm of upper lobe, left bronchus or lung (principal); J43.9 Emphysema, unspecified; J84.10 Pulmonary fibrosis, unspecified; J98.4 Other disorders of lung; R59.0 Localized enlarged lymph nodes; I25.10 Atherosclerotic heart disease of native coronary artery without angina pectoris; K76.89 Other specified diseases of liver
CPT/HCPCS: 36415; 71260; 82565; 84520; Q9967

== ENCOUNTER 2021-04-04 00:52 | Emergency (ER) | payer MEDICARE ==
[~2021-04-04] VITALS: Ht 177.8 cm; Wt 70.4 kg
[~2021-04-04 00:52] MED LIST changes: -IOHEXOL 300 MG/ML 75 ML VIAL. IV ONE; -LISI-517 PO; +LISI5TAB15 PO
[2021-04-04] MEDS ORDERED: GELATIN SPONGE SIZE 12-7MM SPONGE. ONE (01:07)
--- NOTE | 2021-04-04 01:33 | PHYS DOC ---
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 Past Surgical History: Angioplasty, Coronary Bypass Surgery, Other Additional Past Surgical Histo: 2 cardiac stents, melanoma removal to left ear Smoking: Cigarettes Alcohol Use: None Drug Use: None General Adult EDM: Chief Complaint: POST-OP PROBLEM HPI: HPI: 85-year-old male presents with report of bleeding from left earlobe at site of recent melanoma removal from yesterday. Reports incision was repaired with sutures. Patient denies any dizziness or lightheadedness. Patient reports use of Coumadin. Patient reports he only took 5 mg yesterday prior to surgery. Reports typically takes 7.5 mg. Patient reports he took his INR this evening and noticed it was low at 1.6. Patient reports taking 10 mg of Coumadin tonight. Reports was sitting in recliner and suddenly felt dripping blood from his ear. Denies any dizziness or lightheadedness. Review of Systems: Review of Systems: Constitutional: Denies fever or chills Eyes: Denies redness or eye pain HENT: Denies nasal congestion or sore throat Respiratory: Denies cough or shortness of breath Cardiovascular: Denies chest pain or palpitations GI: Denies abdominal pain, nausea, or vomiting : Denies dysuria or hematuria Musculoskeletal: Denies back pain or joint pain Integument: Denies rash; bleeding from sutured left ear wound Neurologic: Denies headache, focal weakness or sensory changes Complete systems were reviewed and found to be within normal limits, except as documented in this note. Current Medications: Current Meds: Current Medications Medications (Trade) Dose Ordered Sig/Shiraz Start Time Stop Time Status Last Admin Dose Admin Gelatin (Gelfoam Size 12-7mm) 1 each 1X ONCE 04/04/21 02:00 04/04/21 02:01 Allergies: Allergies: Allergies Coded Allergies Type Severity Reaction Last Updated Verified No Known Drug Allergies 06/19/19 No Physical Exam: PE: Constitutional: Well developed, well nourished, no acute distress, non-toxic appearance HENT: Normocephalic, atraumatic, left posterior earlobe laceration at site of recent melanoma removal as below, mild swelling noted Eyes: Conjunctiva normal, no discharge Neck: Normal range of motion, no tenderness, supple Lungs & Thorax: No respiratory distress, equal chest rise and fall Skin: Warm, dry, no erythema, left posterior earlobe incision site intact with sutures with active oozing Extremities: No tenderness, ROM intact, no edema Neurologic: Alert and oriented X 3, no focal deficits noted Psychologic: Affect normal, judgment normal Current Patient Data: Vital Signs: Vital Signs Date Time Temp Pulse Resp B/P (MAP) Pulse Ox O2 Delivery O2 Flow Rate FiO2 04/04/21 00:55 97.5 98 20 197/109 (138) 98 Room Air EKG: EKG: [] Radiology/Procedures: Radiology/Procedures: [] Heart Score: C/O Chest Pain: N/A Course & Med Decision Making: Course & Med Decision Making Pertinent Lab studies reviewed. (See chart for details) Patient presents with bleeding from postop wound at site of melanoma excision to left posterior earlobe. Patient is on Coumadin. Reports increase his dose tonight due to low INR. Denies any dizziness or lightheadedness. Wound cleaned and dressed. Gelfoam applied along with compression dressing. Patient laying on ear on top of ice pack. Blood pressure elevated upon arrival which improved during ER stay. H&H stable. INR 1.7. Patient stable for discharge with outpatient follow-up with PCP/dermatology. Discussed findings and plan with patient, who acknowledges understanding and agreement. Beni Disclaimer: Beni Disclaimer: This electronic medical record was generated, in whole or in part, using a voice recognition dictation system. Departure Departure: Impression: Primary Impression: Postoperative hemorrhage from incision Disposition: HOME / SELF CARE / HOMELESS Condition: STABLE Referrals: KAYLEE HILARIO (PCP) Patient Instructions: Postsurgical Bleeding Additional Instructions: ICE area 20 min on then leave off next 20 mins. Repeat several times for next few days to decrease swelling and bruising. Your INR tonight was 1.7. Hold coumadin for 24 hours then resume at prescribed dose. Follow closely with your doctor for further evaluation and treatment. GURMEET MONROE DO Apr 04, 2021 01:33
[2021-04-04 01:41] LABS: BASO # 0.1 x10^3/uL (0.0-0.2); BASO % 1 % (0-3); EOS # 0.2 x10^3/uL (0.0-0.7); EOS % 3 % (0-3); HEMATOCRIT 41.7 % (39.0-53.0); LYMPH # 1.6 x10^3/uL (1.0-4.8); LYMPH % 28 % (24-48); MEAN CORPUSCULAR HEMOGLOBIN 33 pg (25-35); MEAN CORPUSCULAR HGB CONC 34 g/dL (31-37); MEAN CORPUSCULAR VOLUME 98 fL (79-100); MONO # 0.6 x10^3/uL (0.0-1.1); MONO % 11 % (0-9); NEUT # 3.3 x10^3uL (1.8-7.7); NEUT % 57 % (31-73); PLATELET COUNT 130 x10^3/uL (140-400); RED BLOOD COUNT 4.26 x10^6/uL (4.30-5.70); RED CELL DISTRIBUTION WIDTH 14.4 % (11.5-14.5); WHITE BLOOD COUNT 5.9 x10^3/uL (4.0-11.0)
[2021-04-04 01:57] VITALS: BP 176/97
[2021-04-04] MEDS ORDERED: GELATIN SPONGE SIZE 12-7MM SPONGE. TP ONE (02:00)
== END 2021-04-05 02:08 | disposition home or self-care (01) ==
LOC: ER 00:52
DX: T85.838A Hemorrhage due to other internal prosthetic devices, implants and grafts, initial encounter (principal)
CPT/HCPCS: 36415; 85025; 85610; 99283-25

== ENCOUNTER 2021-04-04 08:06 | Emergency (ER) | payer MEDICARE ==
[~2021-04-04] VITALS: Ht 177.8 cm; Wt 68.0 kg
[2021-04-04 08:18] VITALS: BP 149/96
[2021-04-04] MEDS ORDERED: SILVER NITRATE STICK TP ONE (08:32)
--- NOTE | 2021-04-04 08:57 | PHYS DOC ---
Past History Past Medical History: A-Fib, Anemia, Anxiety, Arthritis, Arrhythmia, Bronchitis, CAD, Cancer, COPD, Heart Disease, Hypertension, [place], Other Additional Past Medical Histor: Cardiac. 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 The patient had surgery yesterday to remove tissue from the top of the left ear. Last night he had some bleeding and came to this emergency room. He was here for a few hours but it seemed to have stopped. The patient went home. After he slept at home for a while, the patient woke up with blood all over his pillow and the dressing soaked through. He came back to the emergency room. Patient feels fine otherwise. He has no other specific complaints. He is on Coumadin and took a double dose last night before coming into the ER the first time. His INR was reported to be below the threshold and that is why he took a double dose. He is on Coumadin for A. fib. Review of Systems: Review of Systems: Constitutional: Denies fever or chills Eyes: Denies change in visual acuity HENT: Bleeding left ear Respiratory: Denies cough or shortness of breath Cardiovascular: Denies chest pain or edema GI: Denies abdominal pain, nausea, vomiting, bloody stools or diarrhea : Denies dysuria Musculoskeletal: Denies back pain or joint pain Integument: Denies rash Neurologic: Denies headache, focal weakness or sensory changes Endocrine: Denies polyuria or polydipsia Lymphatic: Denies swollen glands Psychiatric: Denies depression or anxiety Current Medications: Current Meds: Current Medications Medications (Trade) Dose Ordered Sig/[facility] Start Time Stop Time Status Last Admin Dose Admin Silver Nitrate/ Potassium Nitrate (Silver Nitrate Stick) 1 each STK-MED ONCE 04/04/21 08:32 04/04/21 08:32 DC Allergies: Allergies: Allergies Coded Allergies Type Severity Reaction Last Updated Verified No Known Drug Allergies 04/04/21 No Physical Exam: PE: Constitutional: Well developed, well nourished, no acute distress, non-toxic appearance. [] HENT: Normocephalic, atraumatic, bilateral external ears normal, oropharynx moist, no oral exudates, nose normal. Evidence of recent left ear procedure, some swelling and ecchymosis. [] Eyes: PERRLA, EOMI, conjunctiva normal, no discharge. [] Neck: Normal range of motion, no tenderness, supple, no stridor. [] Cardiovascular:Heart rate regular rhythm, no murmur [] Lungs & Thorax: Bilateral breath sounds clear to auscultation [] Abdomen: Bowel sounds normal, soft, no tenderness, no masses, no pulsatile masses. [] Skin: Sutured skin of the left posterior superior ear with small bleed at the base of the incision. [] Back: No tenderness, no CVA tenderness. [] Extremities: No tenderness, no cyanosis, no clubbing, ROM intact, no edema. [] Neurologic: Alert and oriented X 3, normal motor function, normal sensory function, no focal deficits noted. [] Psychologic: Affect normal, judgement normal, mood normal. [] Current Patient Data: Vital Signs: Vital Signs Date Time Temp Pulse Resp B/P (MAP) Pulse Ox O2 Delivery O2 Flow Rate FiO2 04/04/21 08:18 98.1 110 18 149/96 (113) 98 Room Air EKG: EKG: [] Radiology/Procedures: Radiology/Procedures: [] Heart Score: C/O Chest Pain: N/A Risk Factors: Risk Factors: DM, Current or recent (<one month) smoker, HTN, HLP, family history of CAD, obesity. Risk Scores: Score 0 - 3: 2.5% MACE over next 6 weeks - Discharge Home Score 4 - 6: 20.3% MACE over next 6 weeks - Admit for Clinical Observation Score 7 - 10: 72.7% MACE over next 6 weeks - Early Invasive Strategies Course & Med Decision Making: Course & Med Decision Making Pertinent Labs and Imaging studies reviewed. (See chart for details) After cleaning with dried blood, I found that there was a small area of oozing blood from the inferior border of the wound. We were able to get it to stop bleeding with direct pressure. We recovered the area with a nonadherent dr garcia and gauze covering. I informed him he should call his surgeon and make them aware of the complication. They may want to see him in the office today. He is stable for discharge at this time. [] Dragon Disclaimer: Beni Disclaimer: This electronic medical record was generated, in whole or in part, using a voice recognition dictation system. Departure Departure: Impression: Primary Impression: Post-operative haemorrhage Disposition: HOME / SELF CARE / HOMELESS Condition: STABLE Referrals: KAYLEE HILARIO (PCP) Patient Instructions: Sutured Wound Care, [id number] Additional Instructions: Please inform your surgeon of the complications that you had overnight. They may want to see you in the office today for follow-up. Do not take your Coumadin tonight, but resume your normal dosing tomorrow. TIFFANIE MAKI DO Apr 04, 2021 08:57
== END 2021-04-04 09:13 | disposition home or self-care (01) ==
LOC: ER 08:06
DX: H60.322 Hemorrhagic otitis externa, left ear (principal); J44.9 Chronic obstructive pulmonary disease, unspecified; I10 Essential (primary) hypertension; F17.210 Nicotine dependence, cigarettes, uncomplicated
CPT/HCPCS: 99281-25

== ENCOUNTER 2021-04-28 05:22 | Emergency (ER) | payer MEDICARE ==
[~2021-04-28] VITALS: Ht 177.8 cm; Wt 68.0 kg
[2021-04-28 05:30] VITALS: BP 170/104
[2021-04-28] MEDS ORDERED: SUMAtriptan SUCC 6 MG/0.5 ML VIAL SQ ONE (06:30)
[2021-04-28] MEDS ORDERED: MORPHINE SULFATE 10 MG/ML SYRINGE. IM ONE (06:30)
[2021-04-28] MEDS ORDERED: OXYC-325 PO (06:35)
--- NOTE | 2021-04-28 06:37 | PHYS DOC ---
Past History Past Medical History: A-Fib, Anemia, Anxiety, Arthritis, Arrhythmia, Bronchitis, CAD, Cancer, COPD, Heart Disease, Hypertension, [place], Other Additional Past Medical Histor: Cardiac. 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 The patient has had a longstanding struggle with trigeminal neuralgia. He has had 2 surgical procedures in addition to oral pain medications. His most recent procedure has been effective for about 8 months but the pain started to come back over the last 1 week. The patient is still on oxcarbazepine and gabapentin but it is not helping. He was unable to sleep last night so he came to the emergency room for rescue medication. He has taken oxycodone in the past with some relief. He denies any other new symptoms at this time. Review of Systems: Review of Systems: Constitutional: Denies fever or chills Eyes: Denies change in visual acuity HENT: Facial pain Respiratory: Denies cough or shortness of breath Cardiovascular: Denies chest pain or edema GI: Denies abdominal pain, nausea, vomiting, bloody stools or diarrhea : Denies dysuria Musculoskeletal: Denies back pain or joint pain Integument: Denies rash Neurologic: Denies headache, focal weakness or sensory changes Endocrine: Denies polyuria or polydipsia Lymphatic: Denies swollen glands Psychiatric: Denies depression or anxiety Current Medications: Current Meds: Current Medications Medications (Trade) Dose Ordered Sig/[facility] Start Time Stop Time Status Last Admin Dose Admin Morphine Sulfate (Morphine 10mg Syringe) 10 mg 1X ONCE 04/28/21 06:30 04/28/21 06:31 Sumatriptan Succinate (Imitrex) 6 mg 1X ONCE 04/28/21 06:30 04/28/21 06:31 Allergies: Allergies: Allergies Coded Allergies Type Severity Reaction Last Updated Verified No Known Drug Allergies 04/28/21 No Physical Exam: PE: Constitutional: Well developed, well nourished, mild acute distress, non-toxic appearance. [] HENT: Normocephalic, atraumatic, bilateral external ears normal, oropharynx moist, no oral exudates, nose normal. [] Eyes: PERRLA, EOMI, conjunctiva normal, no discharge. [] Neck: Normal range of motion, no tenderness, supple, no stridor. [] Cardiovascular: Heart rate regular rhythm, no murmur [] Lungs & Thorax: Bilateral breath sounds clear to auscultation [] Abdomen: Bowel sounds normal, soft, no tenderness, no masses, no pulsatile masses. [] Skin: Warm, dry, no erythema, no rash. [] Back: No tenderness, no CVA tenderness. [] Extremities: No tenderness, no cyanosis, no clubbing, ROM intact, no edema. [] Neurologic: Alert and oriented X 3, normal motor function, normal sensory function, no focal deficits noted. [] Psychologic: Affect normal, judgement normal, mood normal. [] Current Patient Data: Vital Signs: Vital Signs Date Time Temp Pulse Resp B/P (MAP) Pulse Ox O2 Delivery O2 Flow Rate FiO2 04/28/21 05:30 97.9 111 20 170/104 (126) 98 Room Air EKG: EKG: [] Radiology/Procedures: Radiology/Procedures: [] Heart Score: C/O Chest Pain: N/A Risk Factors: Risk Factors: DM, Current or recent (<one month) smoker, HTN, HLP, family history of CAD, obesity. Risk Scores: Score 0 - 3: 2.5% MACE over next 6 weeks - Discharge Home Score 4 - 6: 20.3% MACE over next 6 weeks - Admit for Clinical Observation Score 7 - 10: 72.7% MACE over next 6 weeks - Early Invasive Strategies Course & Med Decision Making: Course & Med Decision Making Pertinent Labs and Imaging studies reviewed. (See chart for details) The patient is already on the most common treatments. I will give him 10 mg of morphine IM as well as a dose of sumatriptan subcu as possible rescue therapy. I will discharge him with a short course of oxycodone 5/325. The patient will follow up with his surgeon by phone today. He already has an appointment for next month we will try to move this up. He is stable for discharge at this time. [] Dragon Disclaimer: Dragon Disclaimer: This electronic medical record was generated, in whole or in part, using a voice recognition dictation system. Departure Departure: Impression: Primary Impression: Trigeminal neuralgia pain Disposition: HOME / SELF CARE / HOMELESS Condition: STABLE Referrals: KAYLEE HILARIO (PCP) Patient Instructions: Trigeminal Neuralgia Scripts Oxycodone HCl/Acetaminophen (Percocet 5-325 mg Tablet) 1 Each Tablet 1 TAB PO PRN QID PRN for PAIN MDD 4 Tablet(s) for 5 Days, #20 TAB 0 Refills Prov: TIFFANIE MAKI DO 04/28/21 TIFFANIE MAKI DO Apr 28, 2021 06:37
== END 2021-04-28 06:45 | disposition home or self-care (01) ==
LOC: ER 05:22
DX: G50.0 Trigeminal neuralgia (principal); I48.91 Unspecified atrial fibrillation; M19.90 Unspecified osteoarthritis, unspecified site; I25.810 Atherosclerosis of coronary artery bypass graft(s) without angina pectoris; J44.9 Chronic obstructive pulmonary disease, unspecified; I11.9 Hypertensive heart disease without heart failure; I25.2 Old myocardial infarction; F17.210 Nicotine dependence, cigarettes, uncomplicated; Z86.2 Personal history of diseases of the blood and blood-forming organs and certain disorders involving the immune mechanism
CPT/HCPCS: 96372; 99284; J2270; J3030